=== PATIENT | female | born 1995 | race Caucasian/White ===

== ENCOUNTER 2018-07-17 12:17 | Emergency (ER) | payer MEDICAID, SELFPAY ==
[2018-07-17 12:19] VITALS: BP 121/79; PULSE 122; RESP 18; TEMP 37.1; O2SAT 100; BMI 18.3
--- NOTE | 2018-07-17 12:52 | ED.DCSUM_ITS ---
- ER Visit Summary Date of Service: 07/17/18 Chief Complaint: Nausea and vomiting during History of Present Illness: The patient is a 22 F 8 weeks and 6 days by first trimester ultrasound () presenting with nausea and vomiting for the past 3 days. She has had issues with nausea throughout this but it has been worse for the past 3 days and she is concerned that she is becoming dehydrated. She denies abdominal pain, loss of fluids, vaginal bleeding, or any pelvic cramps. No diarrhea. Physical Examination: Vitals are within normal limits. Mucous membranes are dry appearing. Neck is supple. Heart tones are regular and without murmur. Lungs are clear bilaterally. Abdomen is soft and nontender. No focal or lateralizing neuro findings. Test Results: Urine is positive for ketones but also nitrates and bacteria. I sent it for culture Emergency Department Course and Treatment: And was sent for culture. I gave her a dose of Macrobid here. She has no flank pain or significant pelvic pain to suggest pyelonephritis. She was given IV fluids and Zofran. She feels completely better. She said that Zofran worked quite well for her during her last when she suffered from nausea. She would like Zofran to go home on. At this point, she looks quite well. She looks well-hydrated. She is drinking fluid all difficulty and has no abdominal pain, vaginal bleeding, or loss of fluids. She will follow closely with her [facility] doctor and come back here if worse Treatment Plan: Oral Zofran and Macrobid Disposition: Home stable Impression: Initial encounter nausea and vomiting in first trimester , cystitis This note was generated with [employer] dictation software. It may contain incorrect words, spelling, and punctuation that were not noted in review of the chart prior to signing ED Disposition - Plan for ED Patient: Instructions: ED Nausea Vomiting, ED UTI Cystitis Female Prescriptions: Ondansetron [Zofran Odt] 4 mg PO Q8H PRN PRN #10 tablet PRN Reason: Nausea Nitrofurantoin Macrocrystals [Macrobid] 100 mg PO Q12 #14 capsule Referrals: Care Physician,No Primary [Primary Care Provider] -
[2018-07-17] MEDS: 0.9% Normal Saline 1,000 ML 1000 ML IV (12:54)
[2018-07-17] MEDS: Ondansetron 4 MG/2 ML Vial IV (12:54)
[2018-07-17 13:15] LABS: Mucous, Urine 0 SEEN /hpf (<or=2+); Red Blood Cells-Urine 0 SEEN /hpf (0-5)
[2018-07-17 13:33] LABS: Color, Urine Yellow (Yellow); Glucose, Dipstick Normal (Normal); Leukocyte Esterase-Dipstick 25 /ul (Negative); Nitrite-Dipstick Positive (Negative); Occult Blood-Urine Negative /ul (Negative); Protein-Dipstick 30 mg/dl (Negative); Urine Bilirubin Dipstick Negative (Negative); Urine Clarity Sl. Cloudy (Clear); Urine Urobilinogen 1 mg/dl (Normal); Urine pH 6.5 (5.0 - 8.0)
[2018-07-17 13:37] LABS: Ketone-Dipstick 150 mg/dl (Negative)
[2018-07-17 13:41] LABS: Bacteria 1+ /hpf (None Seen); Squamous Epithelial Cells - UA 5-10 SEEN /hpf (5-10); White Blood Cells 0-5 SEEN /hpf (0-5)
--- NOTE | 2018-07-17 13:41 | NURSING ---
[facility] CALLED WITH [facility], [facility] [address], DR. ELLISON AND PARIS CHA RN, INFORMED OF SAME.
[2018-07-17 13:49] VITALS: BP 105/63; PULSE 57; RESP 15; O2SAT 100
[2018-07-17] MEDS: Nitrofurantoin Macrocrystals 100 MG Capsule PO (14:23)
== END 2018-07-17 14:27 | disposition home or self-care (01) ==
PROVIDERS: Emergency Provider Emergency Medicine
DX: O23.41 Unspecified infection of urinary tract in pregnancy, first trimester (principal); O26.891 Other specified pregnancy related conditions, first trimester; R11.2 Nausea with vomiting, unspecified; Z3A.08 8 weeks gestation of pregnancy
CPT/HCPCS: 81001; 87086; 87088; 96361; 96374; 99284; J7030; J2405

== ENCOUNTER 2019-01-29 07:43 | Outpatient (CLI) | payer MEDICAID, SELFPAY ==
[2019-01-29 08:00] VITALS: BMI 22.1
--- NOTE | 2019-01-30 12:11 | OB.TRI.NOTE ---
History of Present Illness Date of Service: 01/29/19 Reason For Visit: R/O LABOR Date of Service: 01/29/19 Final MUNA: 02/20/19 Gestational age: 36 6/7 Allergies codeine Allergy (Verified 07/17/18 12:17) Abd cramps/diarrhea hydrocodone bitartrate [From Vicodin] Allergy (Verified 07/17/18 12:17) Chest tightness tramadol HCl [From Ultram] Allergy (Verified 01/29/19 09:21) Other I get higher than a kite NST - FHR Rate Baby A Baseline: 130 Variability:: Moderate Accelerations:: 15 x 15 Decelerations:: None NST Reactive:: Yes FHR Category:: Category I Uterine Activity:: irreg ctxs q 3-5 min Impression/Plan high risk multigravida, 3 6/7 weeks, previous c/s, threatened labor
== END 2019-01-29 09:35 | disposition home or self-care (01) ==
LOC: WPOUT 07:46 → OBT 07:47
PROVIDERS: Referring Provider Obstetrics & Gynecology; Visit Provider Obstetrics & Gynecology
DX: O60.03 Preterm labor without delivery, third trimester (principal); O09.93 Supervision of high risk pregnancy, unspecified, third trimester; Z3A.36 36 weeks gestation of pregnancy; Z98.891 History of uterine scar from previous surgery
CPT/HCPCS: 59025; 59050; 99218; G0378

== ENCOUNTER 2019-02-13 04:50 | Inpatient (IN) | payer MEDICAID, SELFPAY ==
--- NOTE | 2019-02-07 12:11 | PCM.HP.BLA ---
History and Physical Date of Admission: 02/13/19 Pre-Op History and Physical ? HPI: The patient is a 23 year old female presenting for pre-operative visit. She is scheduled for?c-s, for?repeat on?02/13/19. ??Procedure discussed along with risks, benefits and complications. ?Other alternatives discussed for management. Consent form signed??Yes.? PAST?MEDICAL?HISTORY PAST MEDICAL HISTORY Diagnosis Date ? Anemia ? ? Anxiety ? ? Depression ? ? fracture age 11 ? right arm fracture ulna and radius ? Hypertension ? ? POTS ? Papanicolaou smear of cervix with low grade squamous intraepithelial lesion (LGSIL) 07/15/2018 ? ? PAST?SURGICAL?HISTORY PAST SURGICAL HISTORY Procedure Laterality Date ? DELIVERY ONLY ? 05/11/15 ? , low transverse ? TONSILLECTOMY HX ? 2010 ? ? CURRENT?MEDICATIONS Current Outpatient Medications Medication Sig Dispense Refill ? ferrous sulfate (IRON) 325 mg (65 mg iron) tablet Take 1 tablet by mouth twice daily. 30 tablet 3 ? midodrine (PROAMITINE) 5 mg tablet Take 2 tablets by mouth three times daily. 180 tablet 11 ? ondansetron orally disintegrating (ZOFRAN ODT) 4 mg tab(s) ER Go-Pack Take 1 tablet by mouth every 6 hours as needed. 30 tablet 3 ? Fzxuhzhg-Rx-Crx-Fe-FA ( VITAMIN) tab Take 1 tablet by mouth. ? ? ? No current facility-administered medications for this visit.? ? ALLERGIES:?Codeine; Hydrocodone; Ultram [Tramadol] ? PERSONAL HISTORY:? SOCIAL?HISTORY Social History ??Socioeconomic History ?Marital status: Single ?Spouse name: Not on file ?Number of children: 1 ?Years of education: 12 ?Highest education level: Not on file ??Occupational History ?Occupation: homemaker ??Social Needs ?Financial resource strain: Not on file ?Food insecurity: ?Worry: Not on file ?Inability: Not on file ?Transportation needs: ?Medical: Not on file ?Non-medical: Not on file ??Tobacco Use ?Smoking status: Current Every Day Smoker ?Years: 2.00 ?Smokeless tobacco: Never Used ?Tobacco comment: 3-5 cigarettes a day ??Substance and Sexual Activity ?Alcohol use: No ?Drug use: No ?Comment: quit weed 1 year ago ?Sexual activity: Yes ?Partners: Male ? control/protection: Pill ??Lifestyle ?Physical activity: ?Days per week: Not on file ?Minutes per session: Not on file ?Stress: Not on file ??Relationships ?Social connections: ?Talks on phone: Not on file ?Gets together: Not on file ?Attends episcopal service: Not on file ?Active member of club or organization: Not on file ?Attends meetings of clubs or organizations: Not on file ?Relationship status: Not on file ?Intimate partner violence: ?Fear of current or ex partner: Not on file ?Emotionally abused: Not on file ?Physically abused: Not on file ?Forced sexual activity: Not on file ??Other Topics ?Concerns: ?Not on file ??Social History Narrative ?Not on file ? FAMILY HISTORY:? FAMILY?HISTORY FAMILY HISTORY Problem Relation Age of Onset ? Thyroid Mother ? ? No Known Problems Father ? ? ADD/ADHD Sister ? ? Asthma Brother ? ? No Known Problems Brother ? ? Diabetes Maternal Grandmother ? ? No Known Problems Maternal Grandfather ? ? Diabetes Paternal Grandmother ? ? Diabetes Paternal Grandfather ? ? No Known Problems Daughter ? ? REVIEW OF SYMPTOMS: GENERAL: denies fevers or chills ENDOCRINOLOGY: has not been on steroids Cardiology : denies palpitations or chest pain, occas palpitations, h/o tachycardia Respiratory: denies?cough, some SOB w/ exertion Hematology: denies history of prolonged bleeding or easy bruising or VTE Allergy: Denies history of personal or family history of allergy to anesthesia ? PHYSICAL EXAMINATION: ? VITALS:?Blood pressure 106/72, weight 122 lb (55.3 kg), last menstrual period 03/22/2018. ? GENERAL:??The patient is well nourished, well hydrated in no acute distress. ?, The patient is oriented to time, place, and person. NECK:?Supple. No lynphadenopathy, normal thyroid, no thyromegaly. LUNGS:?Clear to auscultation bilaterally. no wheezes, rhonchi or rales HEART:?Regular rate and rhythm, Normal heart sounds and No murmurs or gallops GENITALIA:?Normal external genitalia, Urethral meatus normal, Bladder nontender, normal vagina and normal vaginal tone, normal cervix, normal uterus, size and consistency, normal adnexa without masses or tenderness and perineum WNL abd-?soft nontender gravid? ? IMPRESSION:?23-year-old 2 para 1 at 39 weeks on scheduled date of 02/13/2019 for repeat ? PLAN:???The risks/benefits/alternatives and personal involved for the planned?repeat c/s?were reviewed with the patient. Her questions were answered to her satisfaction and she desires to proceed. ?Consent was signed. ?I reviewed with her postop instructions and expectations. ? ? I have reviewed and updated past medical and surgical history, medications and allergies? Janie Doan M.D.
[2019-02-13] VITALS (17 sets, daily range): BP systolic 102–119; BP diastolic 64–88; PULSE 50–71; RESP 10–18; TEMP 35.9–36.6; O2SAT 96–100; BMI 22.4
[2019-02-13] MEDS: Lactated Ringers 1,000 ML 999 ML IV (05:25)
[2019-02-13 05:53] LABS: Absolute Lymphocyte Count 3.01 X10^3/uL (0.83-4.51); Absolute Neutrophil Count 6.6 X10^3/uL (2.0-7.7); Basophil# 0.03 X10^3/uL; Basophil% 0.3 % (0-1); Eosinophil# 0.14 X10^3/uL; Eosinophils% 1.3 % (0-5); Hematocrit 35.3 % (37-47); Hemoglobin 11.6 g/dL (12.0-15.0); Lymphocyte # 3.01 X10^3/ul (4.0); Lymphocyte % 28.3 % (19-41); Mean Corp Hgb Conc 32.9 g/dL (32-36); Mean Corpuscular Hgb 29.3 pg (27.0-32.0); Mean Corpuscular Volume 89.1 fL (81-99); Mean Platelet Vol. 11.6 fl (6.2-12.0); Monocyte# 0.82 X10^3/uL; Monocyte% 7.7 % (0-10); NRBC Flagged by Analyzer 0 % (0-5); Neutrophil # 6.59 X10^3/uL (2.7-7.7); Neutrophil % 61.9 % (47-70); Platelet Count 243 K/mm3 (150-450); RBC Distribution Width CV 13.5 % (11.6-14.6); RBC Distribution Width SD 43.9 fl (35.1-43.9); Red Blood Count 3.96 M/mm3 (4.2-5.4); White Blood Count 10.6 K/mm3 (4.4-11.0)
[2019-02-13] MEDS: Lactated Ringers 1,000 ML 50 ML IV (06:35)
[2019-02-13] MEDS: Sodium Citrate/Citric Acid 30 ML UDC PO (12:45)
[2019-02-13] MEDS: Cefazolin 2 GM in 0.9% Normal Saline 100 ML IV (12:53)
--- NOTE | 2019-02-13 13:31 | PCM.OPRPT ---
Delivery Classification: Scheduled Final MUNA: 02/20/19 Final MUNA Source: US <20 weeks Gestational age: 39 Weeks and 0 Days farm facility manager: Neftaly Obregon ms3 Type of Anesthesia:: Spinal Special Medications: none Implants Used: none Date of Procedure: 02/13/19 Pre-Operative Diagnosis: 39 week, previous c/s Post-Operative Diagnosis: same Indications for : Repeat Elective Description of Procedure: The patient was taken to the operating room. She was prepped and draped in the dorsal supine position with a leftward tilt. A Pfannenstiel skin incision was made approximately 2 cm above the symphysis pubis and carried through to underlying layer fascia with the scalpel. The fascia was incised incised in the midline and extended laterally with the Loza scissors. The fascia was dissected off the rectus muscles with blunt and sharp dissection. The rectus muscles were in the midline and the peritoneum was entered bluntly. The peritoneal incision was stretched and the bladder blade was placed. The uterine incision was made in a low transverse fashion with the scalpel and extended superiorly and inferiorly with blunt dissection. The amniotic membranes were ruptured bluntly and clear amniotic fluid returned. The infant's head was brought to the incision in the flexed position and delivered without difficulty. The remainder of the infant was delivered with gentle traction and fundal pressure in the standard fashion. The mouth and nares were bulb suctioned. The cord was clamped and cut as the was stimulated. Cord clamping was delayed. The infant was handed off to the waiting nursing staff. The placenta was delivered with fundal massage and gentle traction in the standard fashion. The uterus was exteriorized and cleared of all clots and debris. The cervix was dilated with a ring forcep. The uterine incision was closed with #1 Vicryl in a running locked fashion. The incision was examined and was found to be hemostatic. The uterus was placed back into the peritoneal cavity and hemostasis was again confirmed. The rectus muscles were examined and any bleeding was Bovie cauterized. The parietal peritoneum and rectus muscles were closed en bloc with an 1 Vicryl running suture. The surgical teams outer gloves were then changed. The rectus fascia was examined and any bleeding was Bovie cauterized and the rectus fascia was closed with 1 Vicryl suture in a running standard fashion. The subcutaneous tissue was examining and any bleeding was Bovie cauterized. The subcutaneous tissue was reapproximated with 3-0 Vicryl suture. The skin was closed in a subcuticular fashion by the GLASS LINED TANK REPAIRER with me present in the labor and delivery suite. I performed the remainder of the procedure with assistance. All sponge, lap, and needle counts were correct. The patient was taken to her room for recovery in a stable condition. Amniotic Membrane Rupture Type: Artificial Amniotic Fluid Description: Clear Placenta Disposition: [facility] Specimen(s) sent to pathology: none Drain: Solis to straight drain Fluids Replaced: 1000 cc Cord Entanglement: None Cord Vessel Description: 3 Vessels Esitmated Blood Loss (ml): 800 Infant Gender: Male (1 minute): 8 - Titus 6lb 10 oz (5 minute): 9 Delayed cord clamping: Yes Antibiotic Given: Ancef 2 grams IV x1 Complications: None - Admit VTE Documentation VTE Present on Admission: No VTE Mechan Device Prophylaxis: SCD's VTE Pharm Prophylaxis ordered?: No Reason prophylaxis not ordered:: Procedure Not Indicated
[2019-02-13] MEDS: Oxytocin 30 units/NS 500 ml 30 UNITS/500 ML IV.SOLN 167 UNITS IV (14:10)
[2019-02-13] MEDS: Lactated Ringers 1,000 ML 100 ML IV (17:12)
[2019-02-13] MEDS: Ketorolac 30 MG/ML Syringe IV (19:36)
--- NOTE | 2019-02-13 21:20 | NURSING ---
Pt up to chair, tolerated well.
[2019-02-13] MEDS: Docusate Sodium 100 MG Capsule PO (23:13)
[2019-02-14] VITALS (11 sets, daily range): BP systolic 88–126; BP diastolic 54–87; PULSE 54–87; RESP 16–18; TEMP 36.2–36.8; O2SAT 98–100
[2019-02-14] MEDS: Ketorolac 30 MG/ML Syringe IV ×4 (01:17→19:01)
[2019-02-14] MEDS: Lactated Ringers 1,000 ML 100 ML IV (01:20)
[2019-02-14 05:14] LABS: Hematocrit 28.6 % (37-47); Hemoglobin 9.3 g/dL (12.0-15.0); Mean Corp Hgb Conc 32.5 g/dL (32-36); Mean Corpuscular Hgb 29.2 pg (27.0-32.0); Mean Corpuscular Volume 89.9 fL (81-99); Mean Platelet Vol. 11.9 fl (6.2-12.0); Platelet Count 169 K/mm3 (150-450); RBC Distribution Width CV 14.1 % (11.6-14.6); Red Blood Count 3.18 M/mm3 (4.2-5.4); White Blood Count 12.9 K/mm3 (4.4-11.0)
[2019-02-14] MEDS: 0.9% Saline Lock 10 ML Syringe IV ×3 (07:33→19:01)
[2019-02-14] MEDS: Senna/Docusate Sodium 1 Tablet PO ×2 (07:34→22:52)
--- NOTE | 2019-02-14 12:32 | PCM.PN.OB ---
Subjective: pain well controlled. Average lochia. No nausea or vomiting. - Physical Exam General: Alert, Cooperative, No apparent distress Abdomen: Soft, Distended - Mildly, softly, Tender - Appropriately, - - This is firm, below the umbilicus and appropriately tender Extremities: No edema Skin: Incision - Bandage is clean dry and intact Vital Signs Temp Pulse Resp BP Pulse Ox 97.2 F L 58 L 16 117/87 H 100 02/14/19 08:00 02/14/19 08:00 02/14/19 08:00 02/14/19 08:00 02/14/19 08:00 Oxygen Delivery Method Room Air Weight: 55.701 kg Body Mass Index (BMI) 22.4 Intake and Output for Last 24 Hours 02/12/19 02/13/19 02/14/19 23:59 23:59 23:59 Intake Total 4054.17 / 4054.17 1696.66 / 1696.66 Output Total 1350 / 1350 1900 / 1900 Balance 2704.17 / 2704.17 -203.34 / -203.34 Laboratory Tests Past 24 Hrs 02/14/19 04:25 WBC 12.9 H RBC 3.18 L Hgb 9.3 L Hct 28.6 L MCV 89.9 MCH 29.2 MCHC 32.5 RDW Std Deviation 46.0 H RDW Coeff of Cruz 14.1 Plt Count 169 MPV 11.9 Medical Necessity - Tobacco Use Smoking Status: Former smoker Assessment/Plan Postoperative day #1 status post repeat section. Patient is doing well. Routine care. Patient is concerned with pain medications has had adverse reactions in the past. I discussed with her she can avoid narcotics, and just alternate Tylenol and anti-inflammatories and use heat or ice as needed. However, after discussion she would like to try oxycodone as needed for breakthrough pain. Will attempt 5 mg, could attempt 2.5 mg if needed as well. is bottlefeeding and doing well.
[2019-02-14] MEDS: oxyCODONE 5 MG Tablet PO ×2 (14:05→19:49)
[2019-02-15] MEDS: Ketorolac 30 MG/ML Syringe IV ×2 (00:47→07:45)
[2019-02-15] MEDS: 0.9% Saline Lock 10 ML Syringe IV ×2 (00:47→07:45)
[2019-02-15] MEDS: oxyCODONE 5 MG Tablet PO ×2 (00:47→10:28)
[2019-02-15 02:50] VITALS: BP 107/63; PULSE 50; RESP 17; TEMP 36.6; O2SAT 98
--- NOTE | 2019-02-15 10:46 | DCINST_ITS ---
Discharge Diet: No Restrictions Discharge Activity: May not drive while taking narcotic pain medications., May Shower May resume sexual activity in: 4-6 weeks Weight Bearing Status: Weight bearing as tolerated Call your doctor if your incision/area has: Continuous Slow Oozing, Sudden Increased Bleeding, Increased Pain/ Swelling, Increased Redness, Foul Smelling Discharge, Swelling at the incision site Additional Instructions: If you experience any of the following, contact your healthcare provider. * Bleeding that soaks a pad every hour for 2 hours * Fever 100.4 or higher * Unrelieved incision or abdominal pain * Swelling, redness, discharge or bleeding from your incision or episiotomy site * Your incision begins to separate * Problems urinating (including inability to urinate or burning while urinating). * Visual changes * Severe headache * Flu-like symptoms * Pain or redness in one of both of your breasts * Pain, warmth, tenderness or swelling in your legs, especially the calf area * Frequent nausea and vomiting * Symptoms of depression or anxiety If you experience any of the following, call 911 or go to the nearest Emergency Room. * Chest pain * Problems breathing * Seizure activity * Partial or complete paralysis of a body part, slurred speech, weakness or drooping of the face, or a sudden inability to walk or hold your balance Allergies/Adverse Reactions: Allergies codeine Allergy (Verified 02/13/19 05:37) Abd cramps/diarrhea hydrocodone bitartrate [From Vicodin] Allergy (Verified 02/13/19 05:37) Chest tightness tramadol HCl [From Ultram] Allergy (Verified 02/13/19 05:37) Other I get higher than a kite Medications to take at Discharge Midodrine HCl 1 tab PO TID 04/27/15 Prenatabs FA 1 tab PO DAILY 01/29/19 Ferrous Sulfate [Iron] 325 mg PO DAILY 02/13/19 Oxycodone [Oxyir] 5 mg PO Q6H PRN PRN 5 Days #15 tab 02/15/19 The following prescriptions were given: Oxycodone [Oxyir] 5 mg PO Q6H PRN PRN 5 Days #15 tab PRN Reason: Mod-Severe Pain (-03/20) Prescription Printed Follow-Up: Call to make an appointment with your doctor for an incision check in 1-2 weeks. You will also need a 6 week post- follow up appointment. Test results from this visit will be discussed in further detail at your follow- up appointment, if applicable. Primary Care Physician: Care Physician,No Primary [Primary Care Provider] -
--- NOTE | 2019-02-15 10:48 | PCM.PN.OB ---
Subjective: Denies complaints - Physical Exam General: Alert, Oriented x3 Abdomen: Soft, Non Tender, Non-Distended - ff mid & below umb; inc - bandage c/d/i Extremities: No Calf Tenderness Vital Signs Temp Pulse Resp BP Pulse Ox 97.8 F 50 L 17 107/63 98 02/15/19 02:50 02/15/19 02:50 02/15/19 02:50 02/15/19 02:50 02/15/19 02:50 Oxygen Delivery Method Room Air Weight: 122 lb 12.8 oz Body Mass Index (BMI) 22.4 Intake and Output for Last 24 Hours 02/13/19 02/14/19 02/15/19 23:59 23:59 23:59 Intake Total 4054.17 / 4054.17 1696.66 / 1696.66 Output Total 1350 / 1350 2300 / 2300 Balance 2704.17 / 2704.17 -603.34 / -603.34 Medical Necessity - Tobacco Use Smoking Status: Former smoker Assessment/Plan POD#2 D/c home per patient request Heme - continue iron, cbc reviewed
--- NOTE | 2019-02-15 14:00 | NURSING ---
1220 Pt eager to be discharged to home. States she feels comfortable and able to care for herself and infant. Significant other involved and helpful.
== END 2019-02-15 12:20 | disposition home or self-care (01) | DRG 540 ==
PROVIDERS: Admitting Provider Obstetrics & Gynecology; Referring Provider Obstetrics & Gynecology; Visit Provider Obstetrics & Gynecology
PROC: 10D00Z1 Extraction of Products of Conception, Low, Open Approach (ICD-10-PCS; CPT 59514; principal; 2019-02-13 12:15)
DX: O34.211 Maternal care for low transverse scar from previous cesarean delivery (principal); N85.8 Other specified noninflammatory disorders of uterus; Z3A.39 39 weeks gestation of pregnancy; Z37.0 Single live birth; F17.210 Nicotine dependence, cigarettes, uncomplicated; O99.334 Smoking (tobacco) complicating childbirth; O99.02 Anemia complicating childbirth; D64.9 Anemia, unspecified
CPT/HCPCS: 85025; 85027; 86850; 86900; 86901; 99218; J7120; A4216; G0378; J2405

== ENCOUNTER 2021-03-10 09:59 | Inpatient (IN) | payer MEDICAID, SELFPAY ==
[2019-02-13 05:42] VITALS: BMI 22.4
--- NOTE | 2021-03-07 13:27 | PCM.HP.BLA ---
History and Physical Date of Admission: 03/10/21 Pre-Op History and Physical ? HPI: The patient is a 25 year old female presenting for pre-operative visit. She is scheduled for , for repeat elective cs on 03/10/21. Procedure discussed along with risks, benefits and complications. Other alternatives discussed for management. Consent form signed? Yes. ? ? PAST MEDICAL HISTORY PAST MEDICAL HISTORY Diagnosis Date ? Anemia ? ? Anxiety ? ? Depression ? ? fracture age 11 ? right arm fracture ulna and radius ? Hypertension ? ? POTS ? Papanicolaou smear of cervix with low grade squamous intraepithelial lesion (LGSIL) 07/15/2018 ? ? PAST SURGICAL HISTORY PAST SURGICAL HISTORY Procedure Laterality Date ? ANESTH, SECTION ? ? ? DELIVERY ONLY ? 05/11/15, 02/13/2019 ? , low transverse ? TONSILLECTOMY HX ? 2010 ? ? ? CURRENT MEDICATIONS Current Outpatient Medications Medication Sig Dispense Refill ? midodrine (PROAMITINE) 5 mg tablet Take 2 tablets by mouth three times daily. 180 tablet 11 ? sertraline (ZOLOFT) 50 mg tablet Take 1.5 tablets by mouth once daily. 45 tablet 4 ? ondansetron orally disintegrating (ZOFRAN ODT) 4 mg disintegrating tablet Take 1 tablet by mouth every 8 hours as needed. DISSOLVE ON TONGUE 30 tablet 1 ? No current facility-administered medications for this visit. ? ? ALLERGIES: Codeine, Hydrocodone, and Ultram [Tramadol] ? PERSONAL HISTORY: SOCIAL HISTORY Social History ? Tobacco Use ? Smoking status: Former Smoker ? ? Years: 2.00 ? Smokeless tobacco: Never Used ? Tobacco comment: 2 a day Vaping Use ? Vaping Use: Never used Substance Use Topics ? Alcohol use: No ? Drug use: No ? ? Comment: quit weed 1 year ago ? FAMILY HISTORY: FAMILY HISTORY FAMILY HISTORY Problem Relation Age of Onset ? Thyroid Mother ? ? No Known Problems Father ? ? ADD/ADHD Sister ? ? Asthma Brother ? ? No Known Problems Brother ? ? Diabetes Maternal Grandmother ? ? No Known Problems Maternal Grandfather ? ? Diabetes Paternal Grandmother ? ? Diabetes Paternal Grandfather ? ? No Known Problems Daughter ? ? ? REVIEW OF SYMPTOMS: negative except as noted above PHYSICAL EXAMINATION: ? VITALS: Blood pressure 110/62, weight 137 lb (62.1 kg), last menstrual period 06/14/2020. ? GENERAL: The patient is well nourished, well hydrated in no acute distress. , The patient is oriented to time, place, and person. NECK: full range of motion ABD: gravid, non tender ? IMPRESSION: @ 38.2 weeks- EDC 03/16/21 ? PLAN: REpeat elective cs scheduled ? Pt has been counseled on risks/benefits and alternatives of surgery including but not limited to anesthesia, bleeding, infection, injury to pelvic structures including bowel, bladder, ureters and vessels. Pt wishes to proceed with surgery at this time. COVID TESTING REVIEWED ? I have reviewed and updated past medical and surgical history, medications and allergies Grace Moser MD
[2021-03-10] VITALS (17 sets, daily range): BP systolic 100–129; BP diastolic 64–87; PULSE 50–71; RESP 13–18; TEMP 36.1–37; O2SAT 97–100; BMI 25.2
[2021-03-10] MEDS: Lactated Ringers 1,000 ML 999 ML IV (10:25)
[2021-03-10] MEDS: Acetaminophen 500 MG Tablet 1000 MG PO ×2 (10:39→18:11)
[2021-03-10 10:49] LABS: Absolute Lymphocyte Count 1.66 X10^3/uL (0.83-4.51); Absolute Neutrophil Count 7.9 X10^3/uL (2.0-7.7); Basophil# 0.04 X10^3/uL; Basophil% 0.4 % (0-1); Eosinophils% 0.9 % (0-5); Hematocrit 35.2 % (37-47); Hemoglobin 11.4 g/dL (12.0-15.0); Lymphocyte # 1.66 X10^3/ul (0.83-4.51); Lymphocyte % 15.6 % (19-41); Mean Corp Hgb Conc 32.4 g/dL (32-36); Mean Corpuscular Hgb 28.9 pg (27.0-32.0); Mean Corpuscular Volume 89.1 fL (81-99); Mean Platelet Vol. 11.2 fl (6.2-12.0); Monocyte% 8.5 % (0-10); NRBC Flagged by Analyzer 0 % (0-5); Neutrophil # 7.89 X10^3/uL (2.7-7.7); Neutrophil % 74.1 % (47-70); Platelet Count 245 K/mm3 (150-450); RBC Distribution Width CV 13.8 % (11.6-14.6); RBC Distribution Width SD 44.8 fl (35.1-43.9); Red Blood Count 3.95 M/mm3 (4.2-5.4); White Blood Count 10.6 K/mm3 (4.4-11.0)
[2021-03-10] MEDS: Lactated Ringers 1,000 ML 150 ML IV (11:25)
[2021-03-10] MEDS: Sodium Citrate/Citric Acid 30 ML UDC PO (11:54)
[2021-03-10 12:00] LABS: Amphetamine Urine VISTA NEGATIVE (<1000 ng/mL); Barbiturate Urine VISTA NEGATIVE (< 200 ng/mL); Benzodiazepine Urine VISTA NEGATIVE (< 200 ng/mL); Cocaine Urine VISTA NEGATIVE (< 300 ng/mL); Ecstacy Urine VISTA NEGATIVE (< 500 ng/mL); Methadone Urine VISTA NEGATIVE (< 300 ng/mL); PCP Urine VISTA NEGATIVE (< 25 ng/mL); THC Urine VISTA POSITIVE (< 50 ng/mL); Vista UDS pH Range 6
[2021-03-10] MEDS: Cefazolin 2 GM in 0.9% Normal Saline 100 ML IV (12:13)
--- NOTE | 2021-03-10 12:56 | OP.PCM_ITS ---
Assessment & Plan (1) Delivery by section: Details Operative Information Date of Procedure: 03/10/21 Pre-Operative Diagnosis: term gestation, previous cs Post-Operative Diagnosis: same, live male infant Indications for : Repeat Elective Classification: Scheduled Procedure Type: low transverse turpentine distiller #1: Maty Cespedes Type of Anesthesia: Spinal Antibiotic Given: Ancef 2 grams IV x1 Drain: Solis to straight drain Estimated Blood Loss: 600 Fluids Replaced: 1000 Procedure Start Time: 12:19 Procedure Stop Time: 12:55 Time of Delivery: : Findings Description of Procedure: After informed consent was obtained the patient was taken the operating room she was given spinal anesthesia. She was then placed in the supine position. She was prepped and draped in the normal sterile fashion. Anesthesia was found to be adequate. At this time a Pfannenstiel skin incision was made with a knife was carried down to the underlying layer of the fascia. The fascial incision was then extended laterally using curved Loza scissor- very thin fascia. no rectus muscle identfied in midline- peritneum entered through defect, taken down with metzenbaum. Gentle opposing traction was placed. At this time the vesicouterine peritoneum was identified- very thin lower uterine segment- bladder reflection disected off. Scalpel was used to make a uterine incision in a low transverse fashion. The uterus was then entered bluntly gentle opposing traction was placed to extend this incision. Membranes were ruptured clear. 's head was brought to the uterine incision was delivered atraumatically. Cord was clamped and cut infant was handed to the waiting nursery team. The Placenta was removed from the uterus. The uterus was then removed from the abdominal cavity. The uterus was cleared of all clots and debris using a lap. At this time the uterine incision was reapproximated using #1 Vicryl in a running locked fashion followed by a second imbricating layer. Hemostasis was appreciated. Posterior cul-de-sac was then cleared of all clots and debris. Uterus was placed back in the abdominal cavity. Gutters were cleared of all clots and debris. tubes and ovaries normal. Uterine incision was reevaluated and noted to be of excellent hemostasis. At this time the peritoneum was grasped with Kellys reapproximated using #2 Vicryl suture in a running fashion. Fascia was then reapproximated using #1 Vicryl in a running fashion. Subcu layer was reapproximated with #2 0 plain gut suture in an interrupted fashion. Subcu layer was closed using 4-0 Monocryl in a subcu fashion. Dry sterile dressing was applied. Instrument lap needle count correct ?2. Anticipated normal postoperative course. Presentation: Positive for Vertex Amniotic Membrane Rupture Type: Artificial Amniotic Fluid Description: Clear Placental Delivery Description: Expressed Placenta Disposition: [facility] Cord Vessel Description: 3 Vessels Cord Entanglement: None Infant A Gender: Male (1 minute): 8 (5 minute): 8 Delayed Cord Clamping: Yes Complications Risks of Surgery Discussed w/Patient: Bleeding, Anesthesia Risks, Infection, Need for Future C-Sections and Injury to surrounding structure(s) including bowel and bladder Complications: none Admit VTE Documentation VTE Present on Admission: Yes VTE Mechan Device Prophylaxis: SCD's VTE Pharm Prophylaxis Ordered: No
[2021-03-10] MEDS: Oxytocin 30 units/NS 500 ml 30 UNITS/500 ML IV.SOLN 167 UNITS IV (13:10)
[2021-03-10] MEDS: Ketorolac 30 MG/ML Syringe IV ×2 (13:32→19:24)
[2021-03-10] MEDS: Midodrine HCl 5 MG Tablet 10 MG PO (18:23)
[2021-03-11] VITALS: BP 125/77; PULSE 50; RESP 16; TEMP 36.6
[2021-03-11] MEDS: Acetaminophen 500 MG Tablet 1000 MG PO ×3 (00:10→13:04)
[2021-03-11] MEDS: Ketorolac 30 MG/ML Syringe IV ×2 (01:19→07:51)
[2021-03-11 04:17] VITALS: BP 124/79; PULSE 50; RESP 16; TEMP 36.6
[2021-03-11 04:35] LABS: Hematocrit 32.2 % (37-47); Hemoglobin 10.4 g/dL (12.0-15.0); Mean Corp Hgb Conc 32.3 g/dL (32-36); Mean Corpuscular Hgb 29.5 pg (27.0-32.0); Mean Corpuscular Volume 91.2 fL (81-99); Mean Platelet Vol. 11.6 fl (6.2-12.0); Platelet Count 225 K/mm3 (150-450); RBC Distribution Width CV 13.8 % (11.6-14.6); RBC Distribution Width SD 46.1 fl (35.1-43.9); Red Blood Count 3.53 M/mm3 (4.2-5.4); White Blood Count 16.5 K/mm3 (4.4-11.0)
[2021-03-11] MEDS: Sertraline 50 MG Tablet 75 MG PO (07:49)
[2021-03-11] MEDS: Senna/Docusate Sodium 1 Tablet PO (07:49)
[2021-03-11] MEDS: Midodrine HCl 5 MG Tablet 10 MG PO ×2 (07:49→13:05)
[2021-03-11] MEDS: 0.9% Saline Lock 10 ML Syringe IV (07:51)
[2021-03-11 08:00] VITALS: BP 103/73; PULSE 54; RESP 14; TEMP 36.7; O2SAT 99
--- NOTE | 2021-03-11 08:52 | PCM.DC ---
Discharge Instructions Diet Discharge Diet: No restrictions Activity Discharge Activity: May Not Drive (until you feel strong enough to slam on a car brake or turn a steering wheel sharply) and May Shower May resume sexual activity in: 6 weeks Ice area for (Minutes): 15 Weight Bearing Status: Weight bearing as tolerated Lifting Restrictions: nothing heavier than baby Dressing / Incision Call your doctor if your incision/area has: Continuous Slow Oozing, Sudden Increased Bleeding, Increased Pain/ Swelling, Increased Redness, Foul Smelling Discharge and Swelling at the incision site Call your doctor if you observe: Fever of 101 or Higher, Numbness or Tingling, Inability to urinate, Inability to have a bowel movement, Using more than 1 pad per hour, Shortness of breath, Dizziness, Fainting spells, Swelling in the ankles, Chest pain, Increased palpitations (irregular heartbeat), Calf discomfort and Uncontrolled pain Suture Line Care: Avoid Pulling/Pushing and Avoid Pinching/Bending Remove Dressing in: 3 days Cleanse incision/area with: Soap & Water Follow Up Care Please Follow Up With: Grace Enrique MD When: 1-2 weeks for incision check and 6 weeks for visit Test Results: Test results from this visit will be discussed in further detail at your follow-up appointment, if applicable. Discharge Plan Admission Admit Date/Time: 03/10/21 09:59 Primary Reason for Your Visit: section Attending Provider: Grace Enrique Primary Care Provider: Jose Physician,No Primary Discharge Orders/Prescriptions Prescriptions: New ibuprofen 800 mg tablet 800 mg PO Q8H PRN (Reason: pain) Qty: 20 RF: 0 docusate sodium [Colace] 100 mg capsule 100 mg PO BID Qty: 30 RF: 0 Continued midodrine 10 MG tablet 1 tab PO TID RF: 0 ferrous sulfate 325 MG tablet 325 mg PO DAILY RF: 0 Prenatabs FA 1 tab PO DAILY RF: 0 sertraline [Zoloft] 50 mg Tablet 75 mg PO DAILY RF: 0 Referrals / Follow Up: Care Physician,No Primary [Primary Care Provider] - Disposition Disposition (needs filled in before D/C Order can be placed): Home, Self Care
--- NOTE | 2021-03-11 08:53 | PN.OBGYN_ITS ---
Subjective Subjective Patient is doing well. Pain is well controlled. Ambulating voiding without difficulty. Tolerating regular diet without nausea or vomiting. Lochia is normal. Denies chest pain, shortness of breath, leg pain. Desires discharge today. Objective Data Objective Data Vital Signs: Vital Signs Temp Pulse Resp BP Pulse Ox 98.1 F 54 L 14 103/73 99 03/11/21 08:00 03/11/21 08:00 03/11/21 08:00 03/11/21 08:00 03/11/21 08:00 Oxygen Delivery Method Room Air Weight: 133 lb 8 oz Body Mass Index (BMI) 25.2 Intake & Output: Intake and Output for Last 24 Hours 03/09/21 03/10/21 03/11/21 23:59 23:59 23:59 Intake Total 2610 / 2610 Output Total 350 / 350 Balance 2260 / 2260 Lab / Micro Data Result Diagrams: 03/11/21 04:25 Labs: Laboratory Results - last 24 hr 03/10/21 10:25: WBC 10.6, RBC 3.95 L, Hgb 11.4 L, Hct 35.2 L, MCV 89.1, MCH 28.9, MCHC 32.4, RDW Std Deviation 44.8 H, RDW Coeff of Curz 13.8, Plt Count 245, MPV 11.2, Immature Gran % (Auto) 0.500, Neut % (Auto) 74.1 H, Lymph % (Auto) 15.6 L, [place] % (Auto) 8.5, Eos % (Auto) 0.9, Baso % (Auto) 0.4, Absolute Neuts (auto) 7.9 H, Absolute Lymphs (auto) 1.66, Nucleated RBC % 0 03/10/21 10:25: Blood Type A POSITIVE, Antibody Screen NEGATIVE 03/10/21 11:20: Urine Opiates Screen NEGATIVE, Urine Methadone Screen NEGATIVE, Ur Barbiturates Screen NEGATIVE, Ur Phencyclidine Scrn NEGATIVE, Ur Amphetamines Screen NEGATIVE, U Methamphetamin-MDMA NEGATIVE, U Benzodiazepines Scrn NEGATIV E, Urine Cocaine Screen NEGATIVE, U Cannabinoids Screen POSITIVE H, Ur Drug S creen Comment 03/11/21 04:25: WBC 16.5 H, RBC 3.53 L, Hgb 10.4 L, Hct 32.2 L, MCV 91.2, MCH 29.5, MCHC 32.3, RDW Std Deviation 46.1 H, RDW Coeff of [place] 13.8, Plt Count 225, MPV 11.6 Physical Exam Const alert and no apparent distress General Appearance: comfortable HEENT normocephalic Resp normal respiratory effort GI soft to palpation, non-tender and non-distended GI Narrative: dressing c/d/i Extremity no calf tenderness Skin no rashes or lesions noted Assessment & Plan (1) Delivery by section: PLAN: Patient desires discharge today. Meeting all milestones go home. Discharge instructions reviewed. To follow-up in the office in 1 to 2 weeks for incision check.
[2021-03-11 12:26] VITALS: BP 128/78; PULSE 55; RESP 14; TEMP 36.6
== END 2021-03-11 14:10 | disposition home or self-care (01) | DRG 540 ==
PROVIDERS: Admitting Provider Obstetrics & Gynecology; Visit Provider Obstetrics & Gynecology
PROC: 10D00Z1 Extraction of Products of Conception, Low, Open Approach (ICD-10-PCS; CPT 59514; principal; 2021-03-10 11:45)
DX: O34.219 Maternal care for unspecified type scar from previous cesarean delivery (principal); O99.02 Anemia complicating childbirth; D64.9 Anemia, unspecified; O99.344 Other mental disorders complicating childbirth; F32.9 Major depressive disorder, single episode, unspecified; F41.9 Anxiety disorder, unspecified; Z79.899 Other long term (current) drug therapy; Z87.891 Personal history of nicotine dependence; Z3A.38 38 weeks gestation of pregnancy; Z37.0 Single live birth
CPT/HCPCS: 80307; 85025; 85027; 86850; 86900; 86901; 99218; 99251; J7120; A4216; G0378; G0463; J2405

== ENCOUNTER 2025-04-02 07:11 | Day surgery (SDC) | payer MEDICAID, SELFPAY ==
[2025-04-02] VITALS (9 sets, daily range): BP systolic 95–107; BP diastolic 44–64; PULSE 51–76; RESP 16–18; TEMP 36.6–37.1; O2SAT 99–100; BMI 19.3
--- OUTSIDE RECORDS SUMMARY | 2025-04-02 07:14 | XMS RPT_ITS | CCD ---
Author Organization [facility] Inform ion Partnership [facility] Care Team Providers Care Laborer [facility] Name Role Phone Karthik Merchant Admitting UnavailKarthik Nunez Attending UnavailElias Elias Primary Care Unavailable Elias Noriega Primary Care Provider [phone] Elias Noriega Primary Care Provider Elias Noriega Primary Care Provider Elias Noriega MD Primary Care Provider [phone] Elias Noriega MD Primary Care Provider [phone] ELISHA JONES Attending Unavailable ELIAS NORIEGA Primary Care Unavailable ELISHA JONES Referring Unavailable ELIAS NORIEGA Primary Care Unavailable ABRAHAM BRITO Attending Unavailable ELISHA JONES Referring Unavailable ELIAS NORIEGA Primary Care Unavailable ABRAHAM BRITO Attending Unavailable ELIAS NORIEGA Primary Care Unavailable ABRAHAM BRITO Attending Unavailable ELIAS NORIEGA Primary Care Unavailable ELIAS NORIEGA Primary Care Unavailable LINDA ALDRIDGE Attending Unavailable ELIAS NORIEGA Primary Care Unavailable NONE, NONE Primary Care Unavailable STEVEN BISHOP MD Consulting Unavailable LUPE GAONA DR~[id number] MICHELINE Torres Attending Unavailable LUPE GAONA DR~[id number] MICHELINE Torres Admitting Unavailable STEVEN BISHOP MD Consulting Unavailable NONE, NONE Consulting Unavailable NONE, NONE Consulting Unavailable BRIELLE ASHLEY APRN Consulting Unavail able BRIELLE ASHLEY APRN Consulting Unavail able LUPE GAONA, DR MICHELINE Torres Consulting Unavaila ble LUPE GAONA, DR MICHELINE Torres Consulting Unavaila ble Care Physician, No Primary Primary Care Unava ilZabrina Whitley Referring Unavailable Zabrina Carter Attending Unavailable Allergies Allergy Classification Reported Allergen(s) Allergy Type Date of Onset Reaction(s) Facility (2 sources) Acetaminophen / HYDROcodone; Translations: [Vicodin] Drug Allergy [facility] Repository (12 sources) Codeine; Translations: [codeine] Drug Allergy 1 Intolerance [facility] Repository (2 sources) traMADol; Translations: [Ultram] Drug Allergy [facility] Repository (9 sources) HYDROcodone; Translations: [HYDROCODONE] Drug Allergy 4 GI Upset [facility] Work Phone: (9 sources) traMADol; Translations: [TRAMADOL] Drug Allergy 1 Mental Status Change [facility] Work Phone: (1 source) HYDROcodone Drug Allergy 5 [facility] Repository (1 source) traMADol Drug Allergy 5 [facility] Repository Medications Current Medications Medication Drug Class(es) Dates Sig (Normalized) Sig (Original) Ethinyl Estradiol / Levonorgestrel (12 sources) Progestin, Estrogen, Progestin-containi ng Intrauterine Device Start: 12-05-2024 take 1 tablet by mouth once daily Levonorgestrel-Ethi nyl Estrad (AVIANE) 0.1mg - 20mcg per tablet Indications: Surveillance for control, oral contraceptives Take 1 tablet by mouth once daily. FOR CONTINUOUS USE. Take active pill continuously x 3 mo (discard placebo pill) 112 tablet 5 12/05/2024 Active Start: 08-16-2023 End: 12-05-2024 take 1 tablet by mouth once daily Levonorgestrel-Ethinyl Estrad (AVIANE) 0.1mg - 20mcg per tablet Take 1 tablet by mouth once daily. Take active pill continuously x 3 mo (discard placebo pill) 84 tablet 4 08/16/2023 12/05/2024 Discontinued Start: 08-16-2023 take 1 tablet by keagan th once daily Levonorgestrel-Ethinyl Estrad (AVIANE) 0.1mg - 20mcg per tablet Take 1 tablet by mouth once daily. Take active pill continuously x 3 mo (discard placebo pill) 84 tablet 4 08/16/2023 Active Start: 05-22-2023 End: 08-16-2023 take 1 tablet by mouth once daily Levonorgestrel-Ethinyl Estrad (AVIANE) 0.1mg - 20mcg per tablet Take 1 tablet by mouth once daily. Take active pill continuously x 3 mo (discard placebo pill) 112 tablet 0 05/22/2023 08/16/2023 Discontinued Start: 05-22-2023 take 1 tablet by keagan th once daily Levonorgestrel-Ethinyl Estrad (AVIANE) 0.1mg - 20mcg per tablet Take 1 tablet by mouth once daily. Take active pill continuously x 3 mo (discard placebo pill) 112 tablet 0 05/22/2023 Active Start: 05-02-2022 End: 05-18-2023 take 1 tablet by mouth once daily Levonorgestrel-Ethinyl Estrad (AVIANE) 0.1mg - 20mcg per tablet Take 1 tablet by mouth once daily. Take active pill continuously x 3 mo (discard placebo pill) 112 tablet 3 05/02/2022 05/18/2023 Discontinued Start: 05-02-2022 take 1 tablet by keagan th once daily Levonorgestrel-Ethinyl Estrad (AVIANE) 0.1mg - 20mcg per tablet Take 1 tablet by mouth once daily. Take active pill continuously x 3 mo (discard placebo pill) 112 tablet 3 05/02/2022 Active Start: 04-18-2022 End: 05-02-2022 take 1 tablet by mouth once daily AVIANE 0.1-20 mg-mcg per tablet Take 1 tablet by mouth once daily 28 tablet 2 04/18/2022 05/02/2022 Discontinued Start: 04-20-2021 take 1 tablet by keagan th once daily Levonorgestrel-Ethinyl Estrad (AVIANE) 0.1mg - 20mcg per tablet Take 1 tablet by mouth once daily. 30 tablet 11 04/20/2021 Active Comment on above: Take 1 tablet by keagan th once daily. Take 1 tablet by keagan th once daily. Take active pill continuously x 3 mo (discard placebo pill) Take 1 tablet by keagan th once daily Completed/Discontinued Medications Medication Drug Class(es) Dates Sig (Normalized) Sig (Original) midodrine hydrochloride 5 mg oral tablet (8 sources) alpha-Adrenergic Agonist Start: 02-10-2021 End: 12-05-2024 take 2 tablets by mouth three times daily midodrine (PROAMITINE) 5 mg tablet TAKE 2 TABLETS BY MOUTH THREE TIMES DAILY 180 tablet 04/11/2022 12/05/2024 Discontinued Comment on above: Take 2 tablets by mo uth three times daily. TAKE 2 TABLETS BY MO UTH THREE TIMES DAILY ondansetron 4 mg disintegrating oral tablet (7 sources) Serotonin-3 Receptor Antagonist Start: 12-23-2020 End: 12-05-2024 take 1 tablet by mouth every eight hours as needed ondansetron orally disintegrating (ZOFRAN ODT) 4 mg disintegrating tablet Indications: 28 weeks gestation of (FORMERLY [facility]) Take 1 tablet by mouth every 8 hours as needed. DISSOLVE ON TONGUE 30 tablet 1 12/23/2020 12/05/2024 Discontinued Comment on above: Take 1 tablet by keagan th every 8 hours as needed. DISSOLVE ON TONGUE sertraline 50 mg oral tablet (8 sources) Serotonin Reuptake Inhibitor Start: 06-12-2023 End: 12-05-2024 take 1 tablet by mouth once daily sertraline (ZOLOFT) 50 mg tablet Take 1 tablet by mouth once daily. 30 tablet 1 06/12/2023 12/05/2024 Discontinued Start: 04-20-2021 End: 05-02-2022 take 1 tablet by mouth once daily sertraline (ZOLOFT) 50 mg tablet Take 1 tablet by mouth once daily. 30 tablet 11 05/02/2022 Active Comment on above: Take 1 tablet by keagan th once daily. Problems Active Problems Problem Classification Problem Date Documented Date Episodic/Chronic Cardiac dysrhythmias (8 sources) Postural orthostatic tachycardia syndrome ; Translations: [Other specified cardiac arrhythmias] Onset: 01-11-2014 08-02-2020 Chronic Other complications of (1 source) Missed ; Translations: [Missed ([facility]LY [facility])] Onset: 03-19-2025 Episodic Other complications of (1 source) with inconclusive viability, not applicable or unspecified; Translations: [ with inconclusive viability, single or unspecified fetus (FORMERLY [facility])] Onset: 03-09-2025 Episodic Other complications of (1 source) Uterine size-date discrepancy, first trimester; Translations: [Uterine size-date discrepancy, first trimester (HCC)] Onset: 03-09-2025 Episodic Other and delivery including normal (4 sources) with uncertain dates; Translations: [Encounter for supervision of normal , unspecified, unspecified trimester] Onset: 07-04-2018 Resolved: 11-22-2018 11-22-2018 Episodic Residual codes; unclassified (1 source) Procedure not indicated; Translations: [Procedure and treatment not carried out for other reasons] 07-14-2024 Episodic Residual codes; unclassified (2 sources) Personal history of other complications of , childbirth and the puerperium; Translations: [History of prior with IUGR ] Onset: 03-09-2025 Episodic Residual codes; unclassified (1 source) History of uterine scar from previous surgery; Translations: [History of section] Onset: 03-09-2025 Episodic Screening and history of mental health and substance abuse codes (9 sources) H/O: depression; Translations: [Personal history of other mental and behavioral disorders] Onset: 07-04-2018 08-02-2020 Episodic Spontaneous (1 source) Incomplete spontaneous without complication; Translations: [Incomplete spontaneous (HCC)] Onset: 03-24-2025 Episodic Substance-related disorders (15 sources) Cannabis abuse; Translations: [Cannabis abuse, uncomplicated] Onset: 07-05-2018 08-13-2020 Chronic Unclassified (1 source) OPENED IN ERROR Past or Other Problems Problem Classification Problem Date Documented Date Episodic/Chronic Cancer of cervix (8 sources) Low grade squamous intraepithelial lesion on cervical Papanicolaou smear; Translations: [Low grade squamous intraepithelial lesion on cytologic smear of cervix (LGSIL)] Onset: 07-15-2018 04-09-2019 Episodic Conditions associated with dizziness or vertigo (16 sources) Orthostatic hypotension; Translations: [Dizziness and giddiness] Onset: 01-11-2014 01-11-2014 Episodic Contraceptive and procreative management (2 sources) Oral contraception; Translations: [Encounter for surveillance of contraceptive pills] Onset: 12-05-2024 12-05-2024 Episodic Immunizations and screening for infectious disease (4 sources) Requires vaccination; Translations: [Encounter for immunization] Onset: 12-05-2024 Episodic Malposition; malpresentation (3 sources) Breech presentation with problem; Translations: [Maternal care for breech presentation, not applicable or unspecified] Onset: 04-29-2015 Resolved: 10-19-2017 06-06-2021 Episodic Nausea and vomiting (3 sources) Nausea; Translations: [Nausea] Onset: 01-11-2014 Resolved: 11-22-2018 11-22-2018 Episodic Other complications of (3 sources) Anemia of ; Translations: [Anemia complicating , unspecified trimester] Onset: 04-29-2015 Resolved: 10-19-2017 06-06-2021 Chronic Other complications of (8 sources) Supervision of with other poor reproductive or obstetric history, unspecified trimester; Translations: [ with other poor obstetric history] Onset: 07-04-2018 08-02-2020 Episodic Other complications of (5 sources) Nausea and vomiting; Translations: [Vomiting of , unspecified] Onset: 07-04-2018 08-02-2020 Episodic Other complications of (3 sources) Vomiting of , unspecified; Translations: [Unspecified vomiting of , unspecified as to episode of care or not applicable] Onset: 07-04-2018 08-02-2020 Episodic Other complications of (3 sources) Rubella non-immune; Translations: [Supervision of other high risk pregnancies, unspecified trimester] Onset: 04-29-2015 Resolved: 10-19-2017 10-19-2017 Episodic Other complications of (3 sources) High risk ; Translations: [Supervision of high risk , unspecified, third trimester] Onset: 04-29-2015 Resolved: 10-19-2017 06-06-2021 Episodic Other complications of (3 sources) Poor growth affecting management; Translations: [Maternal care for other known or suspected poor growth, unspecified trimester, not applicable or unspecified] Onset: 05-07-2015 Resolved: 10-19-2017 06-06-2021 Episodic Other complications of (3 sources) Maternal tobacco use in ; Translations: [Smoking (tobacco) complicating , unspecified trimester] Onset: 07-04-2018 Resolved: 02-19-2019 02-19-2019 Episodic Other screening for suspected conditions (not mental disorders or infectious disease) (3 sources) Cancer cervix screening status; Translations: [Encounter for screening for malignant neoplasm of cervix] Onset: 12-05-2024 08-16-2023 Episodic Previous (8 sources) ; Translations: [Maternal care for unspecified type scar from previous delivery] Onset: 07-04-2018 08-10-2020 Episodic Residual codes; unclassified (1 source) History of clinical finding in subject; Translations: [Personal history of other specified conditions] Onset: 07-05-2018 07-05-2018 Episodic Residual codes; unclassified (3 sources) Transient alteration of awareness; Translations: [Transient alteration of awareness] Onset: 08-20-2013 Resolved: 02-19-2019 02-19-2019 Episodic Short gestation; low weight; and growth retardation (3 sources) growth restriction; Translations: [IUGR (intrauterine growth restriction)] Onset: 05-05-2015 Resolved: 10-19-2017 06-06-2021 Episodic Results Test Name Value Interpretation Reference Range Facility CBC W Auto Differential pane l (Bld)on 03-27-2025 Basophils (Bld) [#/Vol] 0.03 10*3/uL Normal <=0.70 [facility] Comment on above: Performed By: #### 5 7021-8 #### [place] [address] Chief Psychology - [facility] CLIA [id number] Basophils/100 WBC (Bld) 0.4 % Normal <=2.0 [facility] Comment on above: Performed By: #### 5 7021-8 #### [place] [address] [facility] CL[facility] [id number] Eosinophils (Bld) [#/Vol] 0.12 10*3/uL Normal <=0.70 [facility] Comment on above: Performed By: #### 5 7021-8 #### [place] [address] Chief Psychology - [facility] CLIA [id number] Eosinophils/100 WBC (Bld) 1.4 % Normal <=10.0 [facility] Comment on above: Performed By: #### 5 7021-8 #### [facility] [address] [place] [address] [facility] - [facility] HANLEY [id number] Erythrocyte distribution width (RBC) [Entitic vol] 43.8 fL Normal 36.4-46.3 [facility] Comment on above: Performed By: #### 5 7021-8 #### [address] [place] [address] [facility] - [facility] HANLEY [id number] Hematocrit (Bld) [Volume fraction] 31.6 % Low 37.0-47.0 [facility] Comment on above: Performed By: #### 5 7021-8 #### [address] [place] [address] [facility] - [facility] H[facility] [id number] Hemoglobin (Bld) [Mass/Vol] 10.0 g/dL Low 12.0-16.0 [facility] Comment on above: Performed By: #### 5 7021-8 #### [address] [place] [address] [facility] - [facility] HAN[facility] [id number] Immature granulocytes (Bld) [#/Vol] 0.02 10*3/uL Normal <=0.10 [facility] Comment on above: Performed By: #### 5 7021-8 #### [address] [place] [address] [facility] - [facility] H[facility] [id number] Immature granulocytes/100 WBC (Bld) 0.20 % Normal <=1.50 [facility] Comment on above: Performed By: #### 5 7021-8 #### [address] [facility] [place] [address] [facility] - [facility] HANLEY [id number] Lymphocytes (Bld) [#/Vol] 3.96 10*3/uL High 1.20-3.40 [facility] Comment on above: Performed By: #### 5 7021-8 #### [address] [place] [address] [facility] - [facility] NIXIA [id number] Lymphocytes/100 WBC (Bld) 46.8 % High 20.0-40.0 [facility] Comment on above: Performed By: #### 5 7021-8 #### [facility] [address] [place] [address] [facility] - [facility] NIXIA [id number] MCH (RBC) [Entitic mass] 27.9 pg Normal 27.0-31.0 [facility] Comment on above: Performed By: #### 5 7021-8 #### [address] [place] [address] [facility] - [facility] H[facility] [id number] MCHC (RBC) [Mass/Vol] 31.6 g/dL Low 32.0-36.0 [facility] Comment on above: Performed By: #### 5 7021-8 #### [place] [address] [place] [address] [facility] - [facility] NIXIA [id number] MCV (RBC) [Entitic vol] 88.0 fL Normal 80.0-100.0 [facility] Comment on above: Performed By: #### 5 7021-8 #### [address] [place] [address] [facility] - [facility] NIXIA [id number] Monocytes (Bld) [#/Vol] 0.57 10*3/uL Normal 0.10-0.60 [facility] Comment on above: Performed By: #### 5 7021-8 #### [place] [address] [place] [address] [facility] - [facility] NIXIA [id number] Monocytes/100 WBC (Bld) 6.7 % Normal <=8.0 [facility] Comment on above: Performed By: #### 5 7021-8 #### [address] [place] [address] [facility] - [facility] NIXIA [id number] Neutrophils (Bld) [#/Vol] 3.77 10*3/uL Normal 1.40-6.50 [facility] Comment on above: Performed By: #### 5 7021-8 #### [facility] [address] [place] [address] [facility] - [facility] NIXIA [id number] Neutrophils/100 WBC (Bld) 44.5 % Low 50.0-70.0 [facility] Comment on above: Performed By: #### 5 7021-8 #### [address] [place] [address] [facility] - [facility] NIXIA [id number] Nucleated RBC (Bld) [#/Vol] 0.00 10*3/uL Normal <=0.10 [facility] Comment on above: Performed By: #### 5 7021-8 #### [address] [place] [address] [facility] - [facility] NIXIA [id number] Platelet mean volume (Bld) [Entitic vol] 11.3 fL Normal 9.0-13.0 [facility] Comment on above: Performed By: #### 5 7021-8 #### [address] [place] [address] [facility] - [facility] NIXIA [id number] Platelets (Bld) [#/Vol] 206 10*3/uL Normal 130-400 [facility] Comment on above: Performed By: #### 5 7021-8 #### [address] [place] [address] [facility] - [facility] NIXIA [id number] RBC (Bld) [#/Vol] 3.59 10*6/uL Low 4.00-6.30 [facility] Comment on above: Performed By: #### 5 7021-8 #### [address] [place] [address] [facility] - [facility] NIXIA [id number] WBC (Bld) [#/Vol] 8.47 10*3/uL Normal 4.80-10.80 [facility] Comment on above: Performed By: #### 5 7021-8 #### [facility] [address] [place] [address] [facility] - [facility] HAN[facility] [id number] Comprehensive metabolic 2000 panelon 03-27-2025 Albumin [Mass/Vol] 4.0 g/dL Normal 3.4-5.0 [facility] Comment on above: Performed By: #### 2 4323-8, #### [facility] [address] [place] [address] [facility] - [facility] HAN[facility] [id number] ALP [Catalytic activity/Vol] 34 U/L Low 50-136 [facility] Comment on above: Performed By: #### 2 4323-8, #### [facility] [address] [place] [address] [facility] - [facility] NIXIA [id number] ALT [Catalytic activity/Vol] 7 U/L Low 14-59 [facility] Comment on above: Performed By: #### 2 4323-8, #### [facility] [address] [place] [address] [facility] - [facility] NIXIA [id number] Anion gap [Moles/Vol] 10.0 mmol/L Normal <=15.0 [facility] Comment on above: Performed By: #### 2 4323-8, #### [facility] [address] [place] [address] [facility] - [facility] NIXIA [id number] AST [Catalytic activity/Vol] 17 U/L Normal 15-37 [facility] Comment on above: Performed By: #### 2 4323-8, #### [facility] [address] [place] [address] [facility] - [facility] NIXIA [id number] Bilirubin [Mass/Vol] 0.2 mg/dL Normal 0.2-1.0 [facility] Comment on above: Performed By: #### 2 4323-8, #### [facility] [address] [place] [address] [facility] - [facility] NIXIA [id number] Calcium [Mass/Vol] 8.8 mg/dL Normal 8.5-10.1 [facility] Comment on above: Performed By: #### 2 432-8, #### [facility] [address] [place] [address] [facility] - [facility] NIXIA [id number] Chloride [Moles/Vol] 108 mmol/L High 98-107 [facility] Comment on above: Performed By: #### 2 432-8, #### [facility] [address] [place] [address] [facility] - [facility] NIXIA [id number] CO2 [Moles/Vol] 26 mmol/L Normal 21-32 [facility] Comment on above: Performed By: #### 2 432-8, #### [facility] [address] [place] [address] [facility] - [facility] NIXIA [id number] Creatinine [Mass/Vol] 0.62 mg/dL Normal 0.51-0.95 [facility] Comment on above: Performed By: #### 2 4323-8, #### [facility] [address] [place] [address] Chief Psychology - [facility] Medeiros CLIA [id number] GFR/1.73 sq M.predicted MDRD (S/P/Bld) [Vol rate/Area] mL/min/{1.73_m2} Normal >=60 [facility] Comment on above: Performed By: #### 2 4323-8, #### [facility] [address] [place] [address] [facility] - [facility] NIXIA [id number] Glucose [Mass/Vol] 74 mg/dL Normal 74-106 [facility] Comment on above: Performed By: #### 2 4323-8, #### [facility] [address] [facility]. [place] [address] [facility] Psychology - [facility] HANLEY [id number] HGFR GLOMERULAR FILTRATIO N RATE INTERPRETATION~The eGFR is calculated using the MDRD equation.~This equation has been validated in patients with chronic kidney disease;~however, it underestimates the GFR in healthy patients with GFR's over 60 mL/min.~The equation is not valid in children under the age of 18.~NOTE: Criteria for Chronic Kidney Disease:~ ~1. Kidney damage for at least three months, as defined~by structural or functional abnormalities of the kidney,~with or without decreased glomerular filtration rate, manifested by either:~* Pathological abnormalities or~* Markers of Kidney damage, including abnormalities in~the composition of the blood or urine or abnormalities in imaging tests.~ ~2. GFR <60 mL/min/1.73 m squared for at least three months, with or without kidney damage.~ Normal [facility] Comment on above: Performed By: #### 2 4323-8, #### [facility] [address] [facility]. [place] [address] [facility] - [facility] HAN[facility] [id number] Potassium [Moles/Vol] 3.3 mmol/L Low 3.5-5.1 [facility] Comment on above: Performed By: #### 2 4323-8, #### [facility] [address] [facility]. [place] [address] [facility] - [facility] HAN[facility] [id number] Protein [Mass/Vol] 6.6 g/dL Normal 6.4-8.2 [facility] Comment on above: Performed By: #### 2 4323-8, #### [facility] [address] [place] [address] [facility] - [facility] HANLEY [id number] Sodium [Moles/Vol] 144 mmol/L Normal 136-145 [facility] Comment on above: Performed By: #### 2 432-8, #### [facility] [address] [place] [address] [facility] - [facility] HANLEY [id number] Urea nitrogen [Mass/Vol] mg/dL Low 12-25 [facility] Comment on above: Performed By: #### 2 4323-8, #### [facility] [address] [place] [address] [facility] - [facility] HAN[facility] [id number] HCG BLOODon 03-27-2025 HCG.beta subunit Qn 4116 m[IU]/mL High 1-3 [facility] Comment on above: Performed By: #### 2 4323-8, #### [facility] [address] [place] [address] [facility] - [facility] HANLEY [id number] HCG.beta subunit Qnon 2024 [facility] HCG INTERPRETATION T he expected values were calculated non-parametrically and represent the central 95% of the population. When borderline results are encountered, patient samples should be drawn 48 hours later. The concentration of HCG rises rapidly during early . Gestational Age Expected HCG Values 0.2-1 week 5-50 1-2 weeks 50-500 2-3 weeks 100-5000 3-4 weeks 500-10,000 4-5 weeks 1000-50,000 5-6 weeks 10,000-100,000 6-8 weeks 15,000-200,000 2-3 months 10,000-100,000 Normal [facility] Comment on above: Performed By: #### 2 4323-8, #### [facility] [address] [place] [address] [facility] - [facility] H[facility] [id number] URINALYSIS with MICROSCOPICo n 03-27-2025 Ammonium urate crystals LM Ql (Urine sed) Normal NONE SEEN [facility] Comment on above: Performed By: #### U AMR #### [facility] [address] [place] [address] [facility] - [facility] H[facility] [id number] Performed for [place] [address] [place], [place] [address] Amorphous sediment LM Ql (Urine sed) Normal NONE SEEN [facility] Comment on above: Performed By: #### U AMR #### [facility] [address] [place], [place] [address] [facility] - [facility] H[facility] [id number] Performed for [facility] [address] [place], [place] [address] Bacteria LM Ql (Urine sed) TRACE Normal TRACE [facility] System Comment on above: Performed By: #### U AMR #### [facility] [address] [place], [place] [address] Chief Psychology - Tenisha HANLEY [id number] Performed for [facility] [address] [place], [place] [address] Bilirubin (U) [Mass/Vol] Negative Normal NEGATIVE [facility] Comment on above: Performed By: #### U AMR #### [facility] [address] [place], [place] [address] Chief Psychology - Tenisha HANLEY [id number] Performed for [facility] [address] [place], [place] [address] Calcium carbonate crystals LM Ql (Urine sed) Normal NONE SEEN [facility] Comment on above: Performed By: #### U AMR #### [facility] [address] [place], [place] [address] Chief Psychology - Tenisha HANLEY [id number] Performed for [facility] [address] [place], [place] [address] Calcium oxalate crystals LM Ql (Urine sed) Normal FEW [facility] Comment on above: Performed By: #### U AMR #### [facility] [address] [place], [place] [address] Chief Psychology - Tenisha HANLEY [id number] Performed for [facility] [address] [place], [place] [address] Calcium phosphate crystals LM Ql (Urine sed) Normal NONE SEEN [facility] Comment on above: Performed By: #### U AMR #### [facility] [address] [place] [address] Chief Psychology - Tenisha HANLEY [id number] Performed for [facility] [address] [place], [place] [address] Cholesterol crystals LM Ql (Urine sed) Normal NONE SEEN [facility] Comment on above: Performed By: #### U AMR #### [facility] [address] [place], [place] [address] Chief Psychology - Tenisha HANLEY [id number] Performed for [facility] [address] [place], [place] [address] Clarity (U) Slightly Cloudy Abnormal CLEAR [facility] Comment on above: Performed By: #### U AMR #### [facility] [address] [place] [address] Chief Psychology - Tenisha HANLEY [id number] Performed for [facility] [address] [place], [place] [address] Coarse Granular Casts LM.LPF (Urine sed) [#/Area] Normal NONE SEEN [facility] Comment on above: Performed By: #### U AMR #### [facility] [address] [place] [address] Chief Psychology - TenishaUAB [facility] HANLEY [id number] Performed for [facility] [address] [place], [place] [address] Color (U) [place] Abnormal YELLOW [facility] Comment on above: Performed By: #### U AMR #### [facility] [address] [place] [address] Chief Psychology - Tenisha HANLEY [id number] Performed for [facility] [address] [place], [place] [address] Cystine crystals LM.HPF (Urine sed) [#/Area] Normal NONE SEEN [facility] Comment on above: Performed By: #### U AMR #### [facility] [address] [place] [address] Chief Psychology - Tenisha HANLEY [id number] Performed for [facility] [address] [place], [place] [address] Epithelial cells.renal LM.HPF (Urine sed) [#/Area] Normal NONE SEEN [facility] Comment on above: Performed By: #### U AMR #### [facility] [address] [place], [place] [address] Chief Psychology - Tenisha HANLEY [id number] Performed for [facility] [address] [place], [place] [address] Epithelial cells.squamous LM.LPF (Urine sed) [#/Area] 6-10 Abnormal 0-5 [facility] Comment on above: Performed By: #### U AMR #### [facility] [address] [place] [address] Chief Psychology - Tenisha HANLEY [id number] Performed for [facility] [address] [place], [place] [address] FATTY CASTS Normal NONE SEEN [facility] Comment on above: Performed By: #### U AMR #### [facility] [address] [place] [address] Chief Psychology - Tenisha HANLEY [id number] Performed for [facility] [address] [place], [place] [address] Fine Granular Casts LM.LPF (Urine sed) [#/Area] Normal NONE SEEN [facility] Comment on above: Performed By: #### U AMR #### [facility] [address] [place] [address] Chief Psychology - Tenisha HANLEY [id number] Performed for [facility] [address] [place], [place] [address] Glucose Test strip (U) [Mass/Vol] Negative Normal NEGATIVE [facility] Comment on above: Performed By: #### U AMR #### [facility] [address] [place], [place] [address] Chief Psychology - Tenisha Waldemar HANLEY [id number] Performed for [facility] [address] [place], [place] [address] GRAN Normal [facility] Comment on above: Performed By: #### U AMR #### [facility] [address] [place] [address] Chief Psychology - Tenisha HANLEY [id number] Performed for [facility] [address] [place], [place] [address] Hippurate crystals LM Ql (Urine sed) Normal NONE SEEN [facility] Comment on above: Performed By: #### U AMR #### [facility] [address] [place] [address] Chief Psychology - Tenisha HANLEY [id number] Performed for [facility] [address] [place], [place] [address] HMICRO MANUAL MICROSCOPIC Normal [facility] Comment on above: Performed By: #### U AMR #### [facility] [address] [place] [address] Chief Psychology - Tenisha HANLEY [id number] Performed for [facility] [address] [place], [place] [address] Hyaline casts (Urine sed) [#/Area] Normal 0-8 [facility] Comment on above: Performed By: #### U AMR #### [facility] [address] [place] [address] Chief Psychology - Tenisha AHNLEY [id number] Performed for [facility] [address] [place], [place] [address] Ketones (U) [Mass/Vol] Negative Normal NEGATIVE [facility] Comment on above: Performed By: #### U AMR #### [facility] [address] [place] [address] Chief Psychology - Tenisha HANLEY [id number] Performed for [facility] [address] [place], [place] [address] Leucine crystals LM Ql (Urine sed) Normal NONE SEEN [facility] Comment on above: Performed By: #### U AMR #### [facility] [address] [place] [address] Chief Psychology - Tenisha HANLEY [id number] Performed for [facility] [address] [place] [address] Leukocyte esterase Qn (U) 2+ Ismael/uL Abnormal TRACE [facility] Comment on above: Performed By: #### U AMR #### [facility] [address] [place] [address] Chief Psychology - Tenisha HANLEY [id number] Performed for [facility] [address] [place], [place] [address] Microscopic observation Gram stain Nom (Unsp spec) Normal NONE SEEN [facility] Comment on above: Performed By: #### U AMR #### [facility] [address] [place], [place] [address] Chief Psychology - Tenisha HANLEY [id number] Performed for [facility] [address] [place], [place] [address] Mucus Ql (Urine sed) TRACE Normal TRACE [facility] Comment on above: Performed By: #### U AMR #### [facility] [address] [place] [address] Chief Psychology - Tenisha HANLEY [id number] Performed for [facility] [address] [place], [place] [address] Nitrite Ql (U) Negative Normal NEGATIVE [facility] Comment on above: Performed By: #### U AMR #### [facility] [address] [place] [address] Chief Psychology - TenishaBristol-Myers Squibb Children's HospitalRACH [id number] Performed for [facility] [address] [place], [place] [address] pH (U) 6.0 [pH] Normal 5.5-7.5 [facility] Comment on above: Performed By: #### U AMR #### [facility] [address] [place] [address] Chief Psychology - Tenisha HANLEY [id number] Performed for [facility] [address] [place], [place] [address] Phosphate crystals amorphous LM Ql (Urine sed) Normal NONE SEEN [facility] Comment on above: Performed By: #### U AMR #### [facility] [address] [place] [address] Chief Psychology - TenishaBristol-Myers Squibb Children's HospitalRACH [id number] Performed for [facility] [address] [place], [place] [address] Protein (U) [Mass/Vol] 2+ mg/dL Abnormal NEGATIVE [facility] Comment on above: Performed By: #### U AMR #### [facility] [address] [place] [address] Chief Psychology - Tenisha HANLEY [id number] Performed for [facility] [address] [place], [place] [address] RBC (U) [#/Vol] 3+ mg/dL Abnormal NEGATIVE [facility] Comment on above: Performed By: #### U AMR #### [facility] [address] [place] [address] Chief Psychology - Tenisha HANLEY [id number] Performed for [facility] [address] [place], [place] [address] RBC casts LM.LPF (Urine sed) [#/Area] Normal NONE SEEN [facility] Comment on above: Performed By: #### U AMR #### [facility] [address] [place] [address] Chief Psychology - Tenisha HANLEY [id number] Performed for [place] [address] [place], [place] [address] RBC LM.HPF (Urine sed) [#/Area] 50-100 Abnormal 0-4 [facility] Comment on above: Performed By: #### U AMR #### [place] [address] [place] [address] Chief Psychology - Tenisha HANLEY [id number] Performed for [place] [address] [place] [address] Specific gravity (U) [Rel density] <=1.005 Low 1.010-1.035 [facility] Comment on above: Performed By: #### U AMR #### [facility] [address] [place] [address] Chief Psychology - Tenisha HANLEY [id number] Performed for [facility] [address], [place] [address] SQUAMOUS EPITHELIALS Normal 0-5 [facility] Comment on above: Performed By: #### U AMR #### [place] [address] [place] [address] Chief Psychology - Tenisha HANLEY [id number] Performed for [facility] [address] [place], [place] [address] Starch granules LM Ql (Urine sed) Normal NONE SEEN [facility] Comment on above: Performed By: #### U AMR #### [facility] [address] [place], [place] [address] Chief Psychology - Tenisha HANLEY [id number] Performed for [facility] [address] [place], [place] [address] Sulfonamide crystals LM Ql (Urine sed) Normal NONE SEEN [facility] Comment on above: Performed By: #### U AMR #### [facility] [address] [place], [place] [address] Chief Psychology - Tenisha HANLEY [id number] Performed for [facility] [address] [place], [place] [address] TRANSITIONAL EPITHEL Normal NONE SEEN [facility] Comment on above: Performed By: #### U AMR #### [facility] [address] [place] [address] Chief Psychology - Tenisha HANLEY [id number] Performed for [facility] [address] [place], [place] [address] Triple phosphate crystals LM Ql (Urine sed) Normal NONE SEEN [facility] Comment on above: Performed By: #### U AMR #### [facility] [address] [place], [place] [address] Chief Psychology - Tenisha HANLEY [id number] Performed for [facility] [address] [place], [place] [address] Tyrosine crystals LM Ql (Urine sed) Normal NONE SEEN [facility] Comment on above: Performed By: #### U AMR #### [facility] [address] [place], [place] [address] Chief Psychology - Tenisha HANLEY [id number] Performed for [facility] [address] [place], [place] [address] Urate crystals LM Ql (Urine sed) Normal NONE SEEN [facility] Comment on above: Performed By: #### U AMR #### [facility] [address] [place] [address] Chief Psychology - Tenisha HANLEY [id number] Performed for [facility] [address] [place], [place] [address] Urobilinogen Qn (U) Normal <=1.0 [facility] Comment on above: Result Comment: 0.2 E.U./dL Performed By: #### U AMR #### [facility] [address] [place] [address] Chief Psychology - Tenisha HANLEY [id number] Performed for [facility] [address] [place] [address] Waxy casts LM Ql (Urine sed) Normal NONE SEEN [facility] Comment on above: Performed By: #### U AMR #### [facility] [address] [place] [address] Chief Psychology - Tenisha HANLEY [id number] Performed for [facility] [address], [place] [address] WBC casts LM.LPF (Urine sed) [#/Area] Normal NONE SEEN [facility] Comment on above: Performed By: #### U AMR #### [facility] [address] [place] [address] Chief Psychology - Tenisha HANLEY [id number] Performed for [facility] [address], [place] [address] WBC LM.HPF (Urine sed) [#/Area] 6-10 Abnormal 0-5 [facility] Comment on above: Performed By: #### U AMR #### [place] [address] [place] [address] Chief Psychology - Tenisha HANLEY [id number] Performed for [facility] [address] [place], [place] [address] Yeast.budding LM.HPF (Urine sed) [#/Area] Normal NONE SEEN [facility] Comment on above: Performed By: #### U AMR #### [place] [address] [place] [address] Chief Psychology - Tenisha HANLEY [id number] Performed for [facility] [address], [place] [address] Yeast.pseudohyphae LM Ql (Urine sed) Normal NONE SEEN [facility] Comment on above: Performed By: #### U AMR #### [facility] [address] [place], [place] [address] Chief Psychology - Tenisha HANLEY [id number] Performed for [facility] [address] [place], [place] [address] Delisa 03-10-2025 CNPN Telephone (OGFVWE) RUTHANN MOSLEY ([id number]) 1995 F Date Time Provider Department 03/10/25 NURSE CLEANING CUSTODIAN [facility] [place] [facility] During your visit today, we recorded the following information about you: Sergio Snowden RN 03/10/2025 10:20 AM Signed 1st risk assessment form submitted 03/10/2025. Sergio Snowden RN Allergies As of Date: 03/10/2025 Noted Allergy Reaction CODEINE 03/27/2011 5 - Intolerance Comments: adverse reaction HYDROCODONE 09/03/2013 8 - GI Upset Comments: pain in abdomen ULTRAM (TRAMADOL) 03/27/2011 1 - Mental Status Change Date Reviewed: 03/09/2025 Reviewed by: Carmella James LPN - Fully Assessed Reason for Visit: PRAF [4193] Prescriptions as of 03/10/2025 - aspirin, enteric coated (ECOTRIN LOW STRENGTH) 81 mg EC tablet Take 1 tablet by mouth once daily. - ondansetron orally disintegrating (ZOFRAN ODT) 4 mg disintegrating tablet Take 1 tablet by mouth every 8 hours as needed for nausea/vomiting. - PNV24/iron cbn,gluc/FA/dss/dha (PRENATE ORAL) Take 1 tablet by mouth once daily. Problem List As Of Date 03/10/2025 Noted Resolved Awareness alteration, transient [R40.4] 08/20/2013 02/19/2019 Nausea [R11.0] 01/11/2014 11/22/2018 Orthostatic lightheadedness [R42] 01/11/2014 Dizziness [R42] 01/11/2014 POTS (postural orthostatic tachycardia syndrome*01/11/2014 Anemia in [O99.019] 04/29/2015 10/19/2017 Rubella non-immune status, antepartum [O09.899,*04/29/2015 10/19/2017 Breech presentation with problem [O32*04/29/2015 10/19/2017 Supervision of high risk in third tri*04/29/2015 10/19/2017 IUGR (intrauterine growth restriction) [HHY2138]05/05/2015 10/19/2017 IUGR (intrauterine growth restriction) affectin*05/07/2015 10/19/2017 with uncertain dates [Z34.90] 07/04/2018 11/22/2018 with history of section, ant*07/04/2018 IUGR (intrauterine growth restriction) in prior*07/04/2018 History of depression [Z86.59] 07/04/2018 Nausea and vomiting in (HCC) [O21.9] 07/04/2018 03/09/2025 Tobacco use during [O99.330] 07/04/2018 02/19/2019 History of marijuana use [F12.91] 07/05/2018 03/09/2025 Papanicolaou smear of cervix with low grade squ*07/15/2018 Cannabis use disorder, mild, abuse [F12.10] 08/13/2020 03/09/2025 History of prior with IUGR [Z*03/09/2025 03/09/2025 History of section [Z98.891] 03/09/2025 History of depression [Z87.59, Z86.5*03/09/2025 Encounter Status:Closed by SERGIO SNOWDEN on 03/10/25 Normal [facility] BACTERIAL VAGINOSIS NAATon 0 03-09-2025 Lactobacillus crispatus+gasseri+je nsenii + Gardnerella vaginalis + Atopobium vaginae rRNA KANDACE+probe Ql (Vag fld) Detected Abnormal Not detected [facility] Comment on above: Order Comment: Speci men Type: FLUID SPECIMEN Ordering Facility: [facility] Address: [address] [place] [address] Performed By: #### L [id number] #### [facility] CLIA [id number] [address] [place] [address] [place] Bacteria Ur Culton Bacteria identified Cx Nom (U) ORGANISM ID: 1 <10,000 CFU/ml Normal urogenital miya Normal [facility] Comment on above: Performed By: #### L [id number] #### [facility] CLIA [id number] [address] [place] [address] [place] C. trachomatis+N. gonorrhoea e DNA KANDACE+probe Ql (Unsp spec)on 03-09-2025 C. trachomatis rRNA KANDACE+probe Ql (Unsp spec) Not detected Normal Not detected [facility] Comment on above: Order Comment: Speci men Type: FLUID SPECIMEN Ordering Facility: [facility] Address: [address] [place] [address] Performed By: #### L [id number] #### [facility] CLIA [id number] [address] [place] [address] [place] N. gonorrhoeae rRNA KANDACE+probe Ql (Unsp spec) Not detected Normal Not detected [facility] Comment on above: Order Comment: Speci men Type: FLUID SPECIMEN Ordering Facility: [facility] Address: [address] [place] [address] Performed By: #### L [id number] #### [facility] CLIA [id number] [address] [place] [address] [place] GIULIANA/TRICHOMONAS NAATon 0 03-09-2025 C. glabrata RNA KANDACE+probe Ql (Vag fld) Not detected Normal Not detected [facility] Comment on above: Order Comment: Speci men Type: FLUID SPECIMEN Ordering Facility: [facility] Address: [address] [place] [address] Performed By: #### L [id number] #### [facility] CLIA [id number] [address] [place] [address] [place] Giuliana sp DNA KANDACE+probe Ql (Vag fld) Not detected Normal Not detected [facility] Comment on above: Order Comment: Speci men Type: FLUID SPECIMEN Ordering Facility: [facility] Address: [address] [place] [address] Result Comment: The Giuliana species group target includes C. albicans, C. tropicalis, C. parapsilosis, and C. dubliniensis. Performed By: #### L [id number] #### [facility] CLIA [id number] [address] [place] [address] [place] T. vaginalis DNA KANDACE+probe Ql (Unsp spec) Not detected Normal Not detected [facility] Comment on above: Order Comment: Speci men Type: FLUID SPECIMEN Ordering Facility: [facility] Address: [address] [place] [address] Performed By: #### L [id number] #### [facility] CLIA [id number] [address] [place] [address] [place] C. trachomatis+N. gonorrhoea e DNA KANDACE+probe Ql (Unsp spec)on 12-05-2024 C. trachomatis rRNA KANDACE+probe Ql (Unsp spec) Not detected Normal Not detected [facility] Comment on above: Order Comment: Speci men Type: SWAB Ordering Facility: [facility] Address: [address] [place] [address] Performed By: #### 3 [id number] #### [facility] CLIA [id number] [address] [place] [address] [place] N. gonorrhoeae rRNA KANDACE+probe Ql (Unsp spec) Not detected Normal Not detected [facility] Comment on above: Order Comment: Speci men Type: SWAB Ordering Facility: [facility] Address: [address] [place] [address] Performed By: #### 3 [id number] #### [facility] CLIA [id number] [address] [place] [address] [place] [facility] CNOVon 12-05-2024 CNOV Office Visit (OBGYWM ) RUTHANN MOSLEY ([id number]) 1995 F Date Time Provider Department 12/05/24 11:00 AM LINAD ALDRIDGE OBGYWM During your visit today, we recorded the following information about you: Blood pressure Weight Height Last Period 45.4 kg 1.6 m 11/14/24 Linda Aldridge APRN.PROPERTY CUSTODIAN 12/05/2024 12:08 PM Signed Hull Inspector offered: Patient declines. Ruthann is a 29 year old who presents for an annual gynecologic exam without complaints. Still get period: Yes LMP: 11/14/2024 Menses:menses every 28-30 days lasting 3-5 days Bleeding amount bothersome: No Bleeding between periods: No Period symptoms: Breast tenderness; Cramps; Mood change Contraception: condoms HPV vaccine: Yes control frequency: Always Last pap smear: 08/16/2023 ASCUS HPV:negative History of abnormal pap: Yes, history of abnormal PAP smears 07/04/2018 Pap LSIL 04/02/2019 Pap ASC-H HPV other high risk positive 08/25/2019 colposcopy benign 04/30/2020 and 04/30/2021 - normal Paps 08/16/2023 ASCUS HPV negative Time with current partner: 7 years plus Patient concern for STD exposure:no Number of lifetime partners: 4 Bothersome pelvic pain: No Last mammogram: never OB History Gravida3 Para3 Term3 Preterm0 AB0 Living3 SAB0 IAB0 Ectopic0 Multiple0 Live Births3 [employer] Combination History LMP: 11/14/2024, Unknown Age at Menarche: 13 Age at First : Age at Menopause: [employer] Combination History Comments: Sexual Activity: Yes; Male Contraception: Pill Menstrual Tracking History Flowsheet Row Office Visit from 12/05/2024 in OB/Gynecology Period Cycle (Days) 29 Period Duration (Days) 5 Menstrual Flow Light PAST MEDICAL HISTORY Diagnosis Date Anemia Anxiety Depression fracture age 11 right arm fracture ulna and radius Hypertension POTS Papanicolaou smear of cervix with low grade squamous intraepithelial lesion (LGSIL) 07/15/2018 PAST SURGICAL HISTORY Procedure Laterality Date ANESTH, SECTION DELIVERY ONLY 05/11/15, 02/13/2019, 03/10/21 , low transverse TONSILLECTOMY HX 2010 FAMILY HISTORY Problem Relation Age of Onset Thyroid Mother No Known Problems Father ADD/ADHD Sister Asthma Brother No Known Problems Brother Diabetes Maternal Grandmother No Known Problems Maternal Grandfather Diabetes Paternal Grandmother Diabetes Paternal Grandfather No Known Problems Daughter SOCIAL HISTORY Social History Tobacco Use Smoking status: Former Types: Cigarettes Passive exposure: Current Smokeless tobacco: Never Tobacco comments: 2 a day Vaping Use Vaping status: Never Used Substance Use Topics Alcohol use: No Drug use: No Comment: quit weed 1 year ago REVIEW OF SYSTEMS Abdomen: No abdominal pain, nausea, vomiting, diarrhea, or constipation. No bloating, early satiety, indigestion, or increased flatulence. Bladder: No dysuria, gross hematuria, urinary frequency, urinary urgency, or incontinence. Breast: No breast lumps, nipple d/c, overlying skin changes, redness or skin retraction. Allergies and current medication updated:Yes SENSITIVE EXAM: The sensitive examination was discussed with the Patient or Patient's Authorized Web Communications Specialist. As applicable, any other physician, advance practice provider, medical student, or other health professional student that will be observing or involved in the sensitive examination for educational or training purposes was discussed with the Patient or Authorized Web Communications Specialist. The Patient or Authorized Web Communications Specialist has agreed to proceed with the sensitive examination. (Sensitive examination includes inspection and/or palpation of the breasts, pelvis, prostate and anorectal regions). EXAM: BP 106/62 Ht 5' 3 (1.60m) Wt 100 lb (45.4kg) LMP 11/14/2024 BMI 17.72 kg/(m2). GENERAL: pleasant, female in no apparent distress HEENT: Normocephalic, atraumatic, mucus membranes moist, and no lesions NECK: Supple, full range of motion, no adenopathy, and thyroid normal DERMATOLOGY: Normal, without lesions, non-icteric, and non-hirsute BREAST: soft, non-tender, symmetric, no dominant mass, normal nipple-areolar complex, no lymphadenopathy, and no nipple discharge CHEST: Normal inspiratory effort ABDOMEN: soft, non-tender, and no masses PELVIC: external genitalia normal, normal Bartholin's glands, urethra, [place]'s glands, no vulvar lesions, no cervical lesions, good vaginal support, physiologic discharge present, normal appearing perineal body and perianal region BIMANUAL: uterus normal size, shape and consistency, no adnexal masses, and non-tender RECTOVAGINAL: deferred. NEURO: alert and oriented x3,exam grossly non-focal EXTREMITIES: normal ASSESSMENT/PLAN: 1) Health maintenance: Pap done with reflex HPV. Nutrition, exercise and routine health maintenance exams reviewed. HPV vaccine: c (more content not included)... Normal [facility] PAP TESTon 12-05-2024 ADEQUACY Normal [facility] Comment on above: Order Comment: Speci men Type: FLUID SPECIMEN Ordering Facility: [facility] Address: [address] [place] [address] Result Comment: John Paul sfactrui for interpretation. No endocervical component Performed By: #### L [id number] #### [facility] CLIA [id number] [address] [place] [address] [place] CASE REPORT Normal [facility] Comment on above: Order Comment: Speci men Type: FLUID SPECIMEN Ordering Facility: [facility] Address: [address] [place] [address] Result Comment: Gyne cologic Cytology Report Case: [id number] Authorizing Provider: Linda Aldridge APRN.PROPERTY CUSTODIAN Collected: 12/05/2024 12:30 PM Ordering Location: OB/Gynecology Received: 12/05/2024 04:29 PM First Screen: Viviana Sanchez, CT, ASCP Rescreen: Sharri Jolly, CT, ASCP Specimen: Pap Test, ThinPrep, Cervix Performed By: #### L [id number] #### [facility] CLIA [id number] [address] [place] [address] [place] CLINICAL HISTORY, CYTOLOGY, DIETIST Routine Exam Normal [facility] Comment on above: Order Comment: Speci men Type: FLUID SPECIMEN Ordering Facility: [facility] Address: [address] [place] [address] Performed By: #### L [id number] #### [facility] CLIA [id number] [address] [place], [place] [id number] [place] CYTOLOGY PAP OTHER INTERPRETATION Predominance of coccobacilli consistent with shift in vaginal miya. Normal [facility] Comment on above: Order Comment: Speci men Type: FLUID SPECIMEN Ordering Facility: [facility] Address: [address] [place] [address] Performed By: #### L [id number] #### [facility] CLIA [id number] [address] [place], [place] [id number] [place] FINAL PERFORMING LAB Normal [facility] Comment on above: Order Comment: Speci men Type: FLUID SPECIMEN Ordering Facility: [facility] Address: [address] [place] [address] Result Comment: Tech nical component, biochemistry technologist screening performed at: [facility], [address] [place], [place] [id number] CLIA: [id number] Diagnostic interpretation performed at: [facility], [address] [place] [address] [place] [address] CLIA# [id number] Linux Consultant: Fransisco Alas MD Performed By: #### L [id number] #### [facility] CLIA [id number] [address] [place] [address] [place] INTERPRETATION, CYTOLOGY, DIETIST Normal [facility] Comment on above: Order Comment: Speci men Type: FLUID SPECIMEN Ordering Facility: [facility] Address: [address] [place] [address] Result Comment: Nega tive for intraepithelial lesion or malignancy. at 1651 EDT Performed By: #### L [id number] #### [facility] CLIA [id number] [address] [place], [place] [id number] [place] LMP 11/14/2024 Normal [facility] Comment on above: Order Comment: Speci men Type: FLUID SPECIMEN Ordering Facility: [facility] Address: [address] [place] [address] Performed By: #### L [id number] #### [facility] CLIA [id number] [address] [place] [address] [place] PAP DISCLAIMER COMMENT The Pap Smear is a screening test for cervical cancer. False negative results occur with all screening tests, emphasizing the need for rescreening at recommended intervals, and clinical correlation. Normal [facility] Comment on above: Order Comment: Speci men Type: FLUID SPECIMEN Ordering Facility: [facility] Address: [address] [place] [address] Performed By: #### L [id number] #### [facility] CLIA [id number] [address] [place] [address] [place] PAP NC MACHINIST COMMENT This specimen has be en analyzed by the FDA-approved FarmiaTM System, which uses digital imaging and an enhanced artificial intelligence image analysis algorithm to identify berger of interest on the microscopic slide, to assist the cork insulator helper and pathologist in evaluating cells on ThinPrep Pap tests. Following analysis, berger of interest on the microscopic slide selected by the algorithm are reviewed by a cork insulator helper. If a sample requires hierarchical review, the pathologist will review the same berger of interest selected by the algorithm prior to final interpretation. Normal [facility] Comment on above: Order Comment: Speci men Type: FLUID SPECIMEN Ordering Facility: [facility] Address: [address] [place] [address] Performed By: #### L [id number] #### [facility] CLIA [id number] [address] [place], [place] [id number] [place] Vital Signs Date Time Vital Sign Value Performing Clinician Nathaly gleason 12-05-2024 11:06-0400 Body height 160 cm Linda Aldridge APRN.PROPERTY CUSTODIAN Work Phone: [facility] 12-05-2024 11:06-0400 Body mass index (BMI) [Ratio] 17.71 kg/m2 Linda Aldridge APRN.PROPERTY CUSTODIAN Work Phone: [facility] 12-05-2024 11:06-0400 Body weight 45.36 kg Linda Aldridge APRN.PROPERTY CUSTODIAN Work Phone: [facility] 12-05-2024 11:06-0400 Diastolic blood pressure 62 mm[Hg] Linda Aldridge APRN.PROPERTY CUSTODIAN Work Phone: [facility] 12-05-2024 11:06-0400 Systolic blood pressure 106 mm[Hg] Linda Aldridge APRN.PROPERTY CUSTODIAN Work Phone: [facility] 08-16-2023 14:58-0500 Body height 156.8 cm Lu Plotts RN CLINICIAN.CNM Work Phone: [facility] 08-16-2023 14:58-0500 Body weight 51.12 kg Lu Plotyuri RN CLINICIAN.CNM Work Phone: [facility] 08-16-2023 14:58-0500 Diastolic blood pressure 60 mm[Hg] Lu Plotts RN CLINICIAN.CNM Work Phone: [facility] 08-16-2023 14:58-0500 Systolic blood pressure 98 mm[Hg] Lu Plotts RN CLINICIAN.CNM Work Phone: [facility] 05-02-2022 12:56-0500 Body height 157.5 cm Grace Moser MD Work Phone: [facility] 05-02-2022 12:56-0500 Body weight 48.99 kg Grace Moser MD Work Phone: [facility] 05-02-2022 12:56-0500 Diastolic blood pressure 64 mm[Hg] Grace Moser MD Work Phone: [facility] 05-02-2022 12:56-0500 Systolic blood pressure 102 mm[Hg] Grace Moser MD Work Phone: [facility] Encounters Encounter Date Encounter Type Care Provider Facility Start: 04-02-2025 ambulatory No Primary Car e Physician Facility:[facility] Start: 03-27-2025 End: 03-27-2025 Emergency department patient visit NONE NONE Facility:[facility] Start: 03-27-2025 End: 03-27-2025 ambulatory [facility] Facility:[facility] Start: 03-24-2025 End: 03-24-2025 ambulatory [facility] Facility:[facility] Start: 03-19-2025 End: 03-19-2025 ambulatory [facility] Facility:[facility] Start: 03-09-2025 End: 03-09-2025 ambulatory ELISHA JONES Facility:[facility] Start: 12-07-2024 End: 02-06-2025 Follow-up encounter Linda Aldridge APRN.CNP Work Phone: OB/Gynecology Start: 12-05-2024 End: 12-05-2024 Patient encounter procedure Linda Aldridge APRN.CNP Work Phone: OB/Gynecology Comment on above: Encounter for gyneco logical examination (general) (routine) without abnormal findings (Primary Dx); Screening for cervical cancer; Screen for STD (sexually transmitted disease); Surveillance for control, oral contraceptives Start: 12-05-2024 End: 12-05-2024 Patient encounter status Linda Aldridge APRN.CNP Work Phone: [facility] Start: 12-05-2024 End: 12-05-2024 ambulatory LINDA ALDRIDGE Facility:[facility] Start: 12-05-2024 Encounter for gynecological examination (general) (routine) without abnormal findings LINDA ALDRIDGE [facility] Start: 07-14-2024 End: 07-14-2024 ambulatory ELIAS NORIEGA Facility:[facility] Start: 07-14-2024 End: 07-14-2024 Telemedicine consultation with patient Elvia East APRN.CNP Work Phone: Telemedicine Comment on above: Procedure, test, or exam not indicated (Primary Dx) Start: 08-16-2023 End: 08-16-2023 Patient encounter procedure Lu Camacho RN CLINICIAN.CNM Work Phone: OB/Gynecology Comment on above: Encounter for gyneco logical examination (general) (routine) without abnormal findings (Primary Dx); Screening for cervical cancer; Encounter for screening for human papillomavirus (HPV) Start: 08-16-2023 End: 08-16-2023 Patient encounter status Lu Camacho RN CLINICIAN.CNM Work Phone: [facility] Start: 05-18-2023 Refill Grace Moser MD Work Phone: OB/Gynecology Comment on above: Refill Request Start: 05-02-2022 End: 05-02-2022 Patient encounter procedure Grace Moser MD Work Phone: OB/Gynecology Comment on above: Encounter for gyneco logical examination (general) (routine) without abnormal findings (Primary Dx); Encounter for routine eye and vision examination; Need for HPV vaccine Start: 05-02-2022 End: 05-02-2022 Patient encounter status Grace Moser MD Work Phone: OB/Gynecology Start: 04-10-2022 Refill Steven panda MD Work Phone: Neurology Comment on above: Refill Request Start: 02-23-2022 End: 02-23-2022 Patient encounter procedure Grace Moser MD Work Phone: OB/Gynecology Comment on above: OPENED IN ERROR (Janneth tino Dx) Start: 01-23-2018 End: 01-23-2018 Patient encounter procedure Karthik Merchant Facility:[facility] Procedures Date Procedure Procedure Detail Performing Clinician Start: 03-27-2025 Follow-up visit Follow Up ABRAHAM BRITO Start: 02-06-2021 Adult depression screening assessment Grace Moser MD Work Phone: Plan of Treatment Date Care Activity Detail Author Start: 12-23-2030 Urine microalbumin profile [facility] Start: 12-08-2025 End: 12-08-2025 Patient encounter procedure 12/08/2025 2:00 PM EDT Office Visit OB/Gynecology [address] [place] [address] Linda Aldridge APRN.PROPERTY CUSTODIAN [address] [place] [address] Annual OB/Gynecology Comment on above: Annual Start: 12-05-2025 Screening for malign ant neoplasm of cervix Cervical Cancer Screening [facility] Start: 02-09-2025 Influenza vaccination [facility] Start: 08-15-2024 Screening for malign ant neoplasm of cervix Cervical Cancer Screening [facility] Start: 04-20-2024 PAP TESTING PAP TESTING [facility] Start: 04-20-2024 Screening for malign ant neoplasm of cervix Pap Testing [facility] Start: 02-10-2024 Covid-19 Vaccine ( season) Covid-19 Vaccine () [facility] Start: 02-10-2024 Influenza vaccination Influenza Vacc ine (#1) [facility] Start: 06-11-2023 Depression Assessment Depression Ass essment [facility] Start: 02-09-2023 Influenza vaccination Influenza Vacc ine (#1) [facility] Start: 08-30-2022 HPV VACCINE (3 - 3-d ose series) HPV VACCINE (3 - 3-dose series) [facility] Start: 06-11-2022 Depression Assessment Depression Ass essment [facility] Start: 02-09-2022 Influenza vaccination INFLUENZA (#1) [facility] Start: 02-06-2022 Adult depression screening assessment DEPRESSION SCREENING [facility] Start: 06-11-2021 DEPRESSION ASSESSMENT DEPRESSION ASS ESSMENT [facility] Start: 11-16-2017 HPV VACCINE (2 - 3-d ose series) HPV VACCINE (2 - 3-dose series) [facility] Start: 2014 Anxiety Screening Anxiety Screening [facility] Start: 2014 Depression Screening Depression Scre ening [facility] Start: 2010 PEDS TO ADULT TRANSITION ANNUAL ASSESSMENT PEDS TO ADULT TRANSITION ANNUAL ASSESSMENT [facility] Start: 2008 PEDS TO ADULT TRANSITION INITIAL DISCUSSION PEDS TO ADULT TRANSITION INITIAL DISCUSSION [facility] Start: 05-31-1997 COVID-19 VACCINE (#1) COVID-19 VACCI NE (#1) [facility] Start: 1996 HEPATITIS B (1 of 3 - 3-dose series) HEPATITIS B (1 of 3 - 3-dose series) [facility] Chlamydia trachomatis+Neisseria gonorrhoeae DNA [Presence] in Unspecified specimen by KANDACE with probe detection GONORRHEA/CHLAMYDIA NAAT Lab Routine Screen for STD (sexually transmitted disease) 12/05/2024 12:30 PM EDT [facility] PAP TEST PAP TEST Lab Rou andrea Encounter for gynecological examination (general) (routine) without abnormal findings Screening for cervical cancer Encounter for screening for human papillomavirus (HPV) 08/16/2023 3:24 PM EST [facility] Work Phone: PAP TEST PAP TEST Lab Rou andrea Encounter for gynecological examination (general) (routine) without abnormal findings Screening for cervical cancer 12/05/2024 12:30 PM EDT [facility] Work Phone: Immunizations Immunization Date Immunization Notes Care Provider [facility] 05-02-2022 Human Papillomavirus 9-valent vaccine Grace Moser MD Work Phone: [facility] 12-23-2020 tetanus toxoid, redu josé diphtheria toxoid, and acellular pertussis vaccine, adsorbed Grace Moser MD Work Phone: [facility] 11-22-2018 tetanus toxoid, redu josé diphtheria toxoid, and acellular pertussis vaccine, adsorbed Grcae Moser MD Work Phone: [facility] 10-19-2017 Human Papillomavirus 9-valent vaccine Grace Moser MD Work Phone: [facility] Work Phone: 05-13-2015 measles, mumps and rubella virus vaccine Linda Aldridge APRN.CNP Work Phone: [facility] 04-29-2015 tetanus toxoid, redu josé diphtheria toxoid, and acellular pertussis vaccine, adsorbed Grace Moser MD Work Phone: [facility] 02-03-2014 meningococcal polysaccharide (groups A, C, Y and W-135) diphtheria toxoid conjugate vaccine (MCV4P) Linda Aldridge APRN.PROPERTY CUSTODIAN Work Phone: [facility] 02-03-2014 tetanus toxoid, redu josé diphtheria toxoid, and acellular pertussis vaccine, adsorbed Linda Aldridge APRN.PROPERTY CUSTODIAN Work Phone: [facility] 08-19-2009 hepatitis A vaccine, unspecified formulation Linda Aldridge APRN.PROPERTY CUSTODIAN Work Phone: [facility] 08-19-2009 HPV, unspecified formulation Linda Aldridge APRN.PROPERTY CUSTODIAN Work Phone: [facility] 04-20-2009 novel Influenza-H1N1 -09, live virus for nasal administration Linda Aldridge APRN.PROPERTY CUSTODIAN Work Phone: [facility] 04-20-2009 influenza virus vacc ine, unspecified formulation Grace Moser MD Work Phone: [facility] 02-18-2009 hepatitis A vaccine, unspecified formulation Linda Aldridge APRN.PROPERTY CUSTODIAN Work Phone: [facility] 02-18-2009 HPV, unspecified formulation Linda Aldridge APRN.PROPERTY CUSTODIAN Work Phone: [facility] 12-17-2008 HPV, unspecified formulation Linda Aldridge APRN.PROPERTY CUSTODIAN Work Phone: [facility] 12-17-2008 meningococcal polysaccharide (groups A, C, Y and W-135) diphtheria toxoid conjugate vaccine (MCV4P) Linda Aldridge APRN.PROPERTY CUSTODIAN Work Phone: [facility] 03-03-2008 TD(adult) unspecifie d formulation Linda Aldridge APRN.PROPERTY CUSTODIAN Work Phone: [facility] 09-19-2001 diphtheria, tetanus toxoids and acellular pertussis vaccine, unspecified formulation Linda Aldridge APRN.PROPERTY CUSTODIAN Work Phone: [facility] 09-19-2001 measles, mumps and rubella virus vaccine Linda Aldridge RN CLINICIAN.PROPERTY CUSTODIAN Work Phone: [facility] 09-19-2001 poliovirus vaccine, inactivated Linda Aldridge RN CLINICIAN.PROPERTY CUSTODIAN Work Phone: [facility] 11-30-1997 haemophilus influenz ae type b vaccine, PRP-T conjugate Linda Aldridge RN CLINICIAN.PROPERTY CUSTODIAN Work Phone: [facility] 11-30-1997 measles, mumps and rubella virus vaccine Linda Aldridge RN CLINICIAN.PROPERTY CUSTODIAN Work Phone: [facility] 07-28-1997 diphtheria, tetanus toxoids and acellular pertussis vaccine, unspecified formulation Linda Aldridge RN CLINICIAN.PROPERTY CUSTODIAN Work Phone: [facility] 07-28-1997 haemophilus influenz ae type b vaccine, PRP-T conjugate Linda Aldridge RN CLINICIAN.PROPERTY CUSTODIAN Work Phone: [facility] 07-28-1997 hepatitis B vaccine, pediatric or pediatric/adolescent dosage Ilnda Aldridge RN CLINICIAN.PROPERTY CUSTODIAN Work Phone: [facility] 05-22-1997 diphtheria, tetanus toxoids and acellular pertussis vaccine, unspecified formulation Linda Aldridge RN CLINICIAN.PROPERTY CUSTODIAN Work Phone: [facility] 05-22-1997 haemophilus influenz ae type b vaccine, PRP-T conjugate Linda Aldridge RN CLINICIAN.PROPERTY CUSTODIAN Work Phone: [facility] 05-22-1997 poliovirus vaccine, inactivated Linda Aldridge RN CLINICIAN.PROPERTY CUSTODIAN Work Phone: [facility] 03-20-1997 haemophilus influenz ae type b vaccine, PRP-T conjugate Linda Aldridge RN CLINICIAN.PROPERTY CUSTODIAN Work Phone: [facility] 03-17-1997 diphtheria, tetanus toxoids and acellular pertussis vaccine, unspecified formulation Linda Aldridge RN CLINICIAN.PROPERTY CUSTODIAN Work Phone: [facility] 03-17-1997 poliovirus vaccine, inactivated Linda Aldridge RN CLINICIAN.PROPERTY CUSTODIAN Work Phone: [facility] 1996 hepatitis B vaccine, pediatric or pediatric/adolescent dosage Linda Aldridge RN CLINICIAN.PROPERTY CUSTODIAN Work Phone: [facility] 1996 hepatitis B vaccine, pediatric or pediatric/adolescent dosage Linda Aldridge APRN.JOSH Work Phone: [facility] Payers Date Payer Category Payer Self-pay 2023 Medicaid [id number] 2018 Medicaid [id number] 2018 Unknown 1996 Unknown [id number] 1996 Unknown [id number] 1959 Unknown [id number] Unknown [id number] Social History Date Type Detail Facility Start: 08-10-2020 End: 12-05-2024 Tobacco smoking status NHIS Ex-smoker [facility] History of tobacco use Current smoker [facility] History of tobacco use Cigarette Smoker [facility] Start: 08-10-2020 End: 12-05-2024 Tobacco use and exposure Smokeless tobacco non-user [facility] Start: 04-20-2021 End: 12-05-2024 Alcohol intake Current non-drinker of alcohol (finding) [facility] Start: 04-02-2019 End: 05-02-2022 Tobacco Comment 2 a day [facility] Start: 1996 Sex Assigned At Not on file [facility] Start: 02-13-2022 End: 02-23-2022 Exposure to SARS-CoV-2 (event) Not sure [facility] Work Phone: Start: 05-02-2022 End: 12-05-2024 History of Social function [facility] Start: 05-02-2022 End: 12-05-2024 Tobacco use panel [facility] Start: 05-12-2012 Adult Depression Screening Assessment 0 [facility] History of tobacco use Passive smoker [facility] Functional Status Date Assessment Result Facility 07-21-2014 Are you deaf, or do you have serious difficulty hearing No 07/21/2014 1:00 PM Suha Roca [facility] 07-21-2014 Are you blind, or do you have serious difficulty seeing, even when wearing glasses No 07/21/2014 1:00 PM Suha Roca [facility] 07-21-2014 Do you have serious difficulty walking or climbing stairs No 07/21/2014 1:00 PM Suha Roca [facility] 07-21-2014 Do you have difficul ty dressing or bathing No 07/21/2014 1:00 PM Suha Roca [facility] 07-21-2014 Because of a physica l, mental, or emotional condition, do you have difficulty doing errands alone such as visiting a physician's office or shopping No 07/21/2014 1:00 PM Suha Roca [facility] Mental Status Date Assessment Result Facility 07-21-2014 Because of a physica l, mental, or emotional condition, do you have serious difficulty concentrating, remembering, or making decisions No 07/21/2014 1:00 PM Suha Roca [facility] Clinical Notes 07-04-2018 to 03-27-2025 Linda Aldridge APRN.[facility] - 12/05/2024 10:56 AM Elvia Rehman APRN.PROPERTY CUSTODIAN - 07/14/2024 7:30 PM Lu Bullock APRN.CN - 08/16/2023 2:58 PM Veronica Hdez Tx - 02/23/2022 11:32 AM EDT Note Date & Type Note Facility 03-27-2025 Note PROCEDURE: ULTRASOUN D TRANSVAGINAL OB, 03/27/2025 2:04 PM EDT. INDICATIONS: Irregular menstruation, abdominal pain. Spontaneous one week earlier, Cytotec administration 03/22 and 03/24. Passing clots. Prior section 4 para 3 AB 1 Approximately 7 week COMPARISON: None TECHNIQUE: Transvaginal pelvic sonogram, grayscale color and spectral assessment. FINDINGS: Uterus: 10.6 x 4.6 x 4.9 cm. Uterus is retroverted retroflexed. A single intrauterine is identified. There is heterogeneous decidual reaction. Misshapen gestational sac is identified in the lower uterine segment/cervical level with internal septation. There is angular margins and irregular margination. Embryonic pole is seen. No cardiac activity could be documented by sonographic surveillance, M mode Doppler interrogation or color assessment. Mean gestational sac size: 2.20 cm Embryonic crown-rump length: 1.20 cm Sonographic gestational age: 7 weeks 3 days +/- 5 days Sonographic MUNA 11/28/2025 Perigestational hemorrhage is noted above and below the gestational sac. Maternal right ovary: 2.6 x 0.9 x 1.8 cm. Volume 2 mL. Subcentimeter follicle seen, normal sonographic morphology. Maternal left ovary: 2.5 x 1.2 x 1.6 cm. 1.2 x 1.0 x 1.3 cm corpus luteum of favored. Volume 3 mL. Free fluid in the cul-de-sac noted. IMPRESSION: 1. Failed first trimester intrauterine , incomplete spontaneous . Misshapen complex gestational sac is noted in the lower uterine segment/cervix level. Embryonic pole without cardiac activity. Embryo consistent with 7 week 3 day gestation +/- 5 days. This meets criteria for nonviable failed first trimester . 2. Heterogeneous decidual reaction with small areas of perigestational hemorrhage above the level of the gestational sac 3. Normal maternal right ovarian sonographic morphology 4. 1.3 cm maternal left ovarian corpus luteum of 4. Mild pelvic free fluid in the cul-de-sac. [facility] 03-27-2025 Note HNO ID: [id number] Author: ABRAHAM BRITO MD Service: ? Author Type: Physician Type: Progress Notes Filed: 03/27/2025 13:19 Note Text: Obstetrics and Gynecology [place] DIETIST Visit Subjective Recording using [employer] software for draft documentation of the visit was discussed with the patient/authorized treasury representative; all questions welcomed and answered. Patient/authorized treasury representative agreed to proceed CHIEF COMPLAINT: The patient is a 29-year-old female, presenting for evaluation of retained products of conception and ongoing vaginal bleeding following medical management of an incomplete . Accompanied by her father. HPI: The patient is a 29-year-old female presenting for evaluation of persistent pain and bleeding following the administration of Cytotec for a miscarriage. Miscarriage Management - Patient has received two doses of Cytotec for miscarriage management. - After the first dose, she passed clots but did not experience significant pain. - After the second dose, she experienced heavy bleeding and severe pain, describing the pain as so intense that she was shaking and almost went to the hospital. - Currently, the bleeding has slowed, but she continues to experience significant pain. - She has been trying to wait it out in hopes that the pain and bleeding will subside once everything passes. - She has undergone several vaginal ultrasounds recently. Social History - Patient has a 4-year-old son. HISTORY: OB History Gravida4 Para3 Term3 Preterm0 AB0 Living3 SAB0 IAB0 Ectopic0 Multiple0 Live Births3 [employer] Combination History LMP: 01/05/2025, Age at Menarche: 13 Age at First : 18 Age at Menopause: [employer] Combination History Comments: Sexual Activity: Yes; Male Contraception: No contraception data on record Menstrual Tracking History Flowsheet Row Office Visit from 12/05/2024 in OB/Gynecology Period Cycle (Days) 29 Period Duration (Days) 5 Menstrual Flow Light PAST MEDICAL HISTORY Diagnosis Date Anemia Anxiety Depression fracture age 11 right arm fracture ulna and radius History of depression After 2019 Hypertension POTS Papanicolaou smear of cervix with low grade squamous intraepithelial lesion (LGSIL) 07/15/2018 POTS (postural orthostatic tachycardia syndrome) PAST SURGICAL HISTORY Procedure Laterality Date ANESTH, SECTION DELIVERY ONLY 05/11/15, 02/13/2019, 03/10/21 , low transverse TONSILLECTOMY HX 2010 FAMILY HISTORY Problem Relation Age of Onset Thyroid Mother No Known Problems Father ADD/ADHD Sister Asthma Brother No Known Problems Brother Diabetes Maternal Grandmother No Known Problems Maternal Grandfather Diabetes Paternal Grandmother Diabetes Paternal Grandfather No Known Problems Daughter SOCIAL HISTORY[1] Current Outpatient Medications Medication Sig ondansetron orally disintegrating (ZOFRAN ODT) 4 mg disintegrating tablet Take 1 tablet by mouth every 8 hours as needed for nausea/vomiting. aspirin, enteric coated (ECOTRIN LOW STRENGTH) 81 mg EC tablet Take 1 tablet by mouth once daily. (Patient not taking: Reported on 03/24/2025) PNV24/iron cbn,gluc/FA/dss/dha (PRENATE ORAL) Take 1 tablet by mouth once daily. (Patient not taking: Reported on 03/24/2025) No current facility-administered medications for this visit. ALLERGIES Allergen Reactions Codeine Intolerance adverse reaction Hydrocodone GI Upset pain in abdomen Ultram [Tramadol] Mental Status Change REVIEW OF SYSTEMS: Genitourinary: (+) vaginal bleeding, (+) pelvic pain Objective SENSITIVE EXAM: The sensitive examination was discussed with the Patient or Patient's Authorized Web Communications Specialist. As applicable, any other physician, advance practice provider, medical student, or other health professional student that will be observing or involved in the sensitive examination for educational or training purposes was discussed with the Patient or Authorized Web Communications Specialist. The Patient or Authorized Web Communications Specialist has agreed to proceed with the sensitive examination. (Sensitive examination includes inspection and/or palpation of the breasts, pelvis, prostate and anorectal regions). PHYSICAL EXAM: BP 108/72 Wt 102 lb (46.3kg) LMP 01/05/2025 GENERAL: Pleasant; in no apparent distress - PELVIC: external genitalia teri Bedside TVUS shows GS with pole, no FCA Assessment AND Plan ASSESSMENT AND PLAN: 1. Missed (HCC) (O02.1) - Persistent gestational sac and pole on ultrasound following two doses of Cytotec; medical management unsuccessful. - Discussed surgical management with [facility]C scheduled for , April [address] Carter. - Reviewed risks of [facility] (bleeding, infection, uterine or intra-abdominal organ injury) and alternative of a third Cytotec dose, which patient declined. - Provided preoperative instructions: NPO after midnight prior (more content not included)... [facility] 03-24-2025 Note HNO ID: [id number] Author: ABRAHAM BRITO MD Service: ? Author Type: Physician Type: Progress Notes Filed: 03/24/2025 14:07 Note Text: Hull Inspector offered: Patient declines. Obstetrics and Gynecology [place] DIETIST Visit Subjective Recording using [employer] software for draft documentation of the visit was discussed with the patient/authorized treasury representative; all questions welcomed and answered. Patient/authorized treasury representative agreed to proceed CHIEF COMPLAINT: The patient is a 29-year-old female presenting for evaluation of retained products of conception after medical . HPI: The patient is a 29-year-old female presenting for follow-up after taking medication to induce bleeding. Bleeding and Pain - Took medication on Sunday night around 9 PM to induce bleeding. - Began experiencing bleeding on Sunday morning, which continued throughout the day. - Passed a couple of clots described as the size of a small cutie orange. - Bleeding slowed down on Sunday and is now described as spotting. - Reports pain as the worst part of the experience, exacerbated by not being able to rest due to responsibilities with other children. HISTORY: OB History Gravida4 Para3 Term3 Preterm0 AB0 Living3 SAB0 IAB0 Ectopic0 Multiple0 Live Births3 [employer] Combination History LMP: 01/05/2025, Age at Menarche: 13 Age at First : 18 Age at Menopause: [employer] Combination History Comments: Sexual Activity: Yes; Male Contraception: No contraception data on record Menstrual Tracking History Flowsheet Row Office Visit from 12/05/2024 in OB/Gynecology Period Cycle (Days) 29 Period Duration (Days) 5 Menstrual Flow Light PAST MEDICAL HISTORY Diagnosis Date Anemia Anxiety Depression fracture age 11 right arm fracture ulna and radius History of depression After 2019 Hypertension POTS Papanicolaou smear of cervix with low grade squamous intraepithelial lesion (LGSIL) 07/15/2018 POTS (postural orthostatic tachycardia syndrome) PAST SURGICAL HISTORY Procedure Laterality Date ANESTH, SECTION DELIVERY ONLY 05/11/15, 02/13/2019, 03/10/21 , low transverse TONSILLECTOMY HX 2010 FAMILY HISTORY Problem Relation Age of Onset Thyroid Mother No Known Problems Father ADD/ADHD Sister Asthma Brother No Known Problems Brother Diabetes Maternal Grandmother No Known Problems Maternal Grandfather Diabetes Paternal Grandmother Diabetes Paternal Grandfather No Known Problems Daughter SOCIAL HISTORY[1] Current Outpatient Medications Medication Sig ondansetron orally disintegrating (ZOFRAN ODT) 4 mg disintegrating tablet Take 1 tablet by mouth every 8 hours as needed for nausea/vomiting. aspirin, enteric coated (ECOTRIN LOW STRENGTH) 81 mg EC tablet Take 1 tablet by mouth once daily. (Patient not taking: Reported on 03/24/2025) PNV24/iron cbn,gluc/FA/dss/dha (PRENATE ORAL) Take 1 tablet by mouth once daily. (Patient not taking: Reported on 03/24/2025) No current facility-administered medications for this visit. ALLERGIES Allergen Reactions Codeine Intolerance adverse reaction Hydrocodone GI Upset pain in abdomen Ultram [Tramadol] Mental Status Change REVIEW OF SYSTEMS: Constitutional: (+) pain Genitourinary: (+) vaginal bleeding, (+) passage of clots Objective SENSITIVE EXAM: The sensitive examination was discussed with the Patient or Patient's Authorized Web Communications Specialist. As applicable, any other physician, advance practice provider, medical student, or other health professional student that will be observing or involved in the sensitive examination for educational or training purposes was discussed with the Patient or Authorized Web Communications Specialist. The Patient or Authorized Web Communications Specialist has agreed to proceed with the sensitive examination. (Sensitive examination includes inspection and/or palpation of the breasts, pelvis, prostate and anorectal regions). PHYSICAL EXAM: BP 100/62 Wt 100 lb 9.6 oz (45.6kg) LMP 01/05/2025 GENERAL: Pleasant; in no apparent distress - PELVIC: external genitalia normal - Patient consent for exam received Bedside TVUS: - GS with pole present (NO FCA) Assessment AND Plan ASSESSMENT AND PLAN: 1. Incomplete spontaneous (HCC) (O03.4) - Persistent retained products of conception on ultrasound following initial medical management. - Administer second dose of medication: 4 tablets vaginally. - Discussed potential need for a third dose or surgical intervention if tissue does not pass with this dose; patient expressed understanding and agreement with plan. - Advised patient to update after taking the second dose; will determine next steps based on response. Medical Decision Making: Problems: Low: Stable chronic illness Risk: Moderate: Drug management Medical Decision Making Level: 3 - Low Abraham Brito MD [1] Social History Tobacco Use Smoking (more content not included)... [facility] 03-19-2025 Note HNO ID: [id number] Author: ANA MARIA MALAVE MD Service: ? Author Type: Physician Type: Progress Notes Filed: 03/19/2025 16:35 Note Text: The patient presents for requested ultrasound. Full report available in the Imaging tab in Epic. Ana Maria Malave MD [facility] 03-19-2025 Note HNO ID: [id number] Author: ABRAHAM BRITO MD Service: ? Author Type: Physician Type: Progress Notes Filed: 03/19/2025 11:52 Note Text: Obstetrics and Gynecology [place] DIETIST Visit Subjective Recording using [employer] software for draft documentation of the visit was discussed with the patient/authorized treasury representative; all questions welcomed and answered. Patient/authorized treasury representative agreed to proceed CHIEF COMPLAINT: The patient is a 29-year-old female presenting for medical management of a missed at approximately 7-8 weeks? gestation. HPI: The patient is a 29-year-old female presenting for evaluation following a miscarriage. Miscarriage - Patient was informed last week that there were abnormalities in the . - Today, an ultrasound revealed no heartbeat; previous ultrasound had detected a faint heartbeat. - Patient is measuring between 7-8 weeks gestation. - Reports mild cramping, but no significant pain or bleeding. HISTORY: OB History Gravida4 Para3 Term3 Preterm0 AB0 Living3 SAB0 IAB0 Ectopic0 Multiple0 Live Births3 [employer] Combination History LMP: 01/05/2025, Age at Menarche: 13 Age at First : 18 Age at Menopause: [employer] Combination History Comments: Sexual Activity: Yes; Male Contraception: No contraception data on record Menstrual Tracking History Flowsheet Row Office Visit from 12/05/2024 in OB/Gynecology Period Cycle (Days) 29 Period Duration (Days) 5 Menstrual Flow Light PAST MEDICAL HISTORY Diagnosis Date Anemia Anxiety Depression fracture age 11 right arm fracture ulna and radius History of depression After 2019 Hypertension POTS Papanicolaou smear of cervix with low grade squamous intraepithelial lesion (LGSIL) 07/15/2018 POTS (postural orthostatic tachycardia syndrome) PAST SURGICAL HISTORY Procedure Laterality Date ANESTH, SECTION DELIVERY ONLY 05/11/15, 02/13/2019, 03/10/21 , low transverse TONSILLECTOMY HX 2010 FAMILY HISTORY Problem Relation Age of Onset Thyroid Mother No Known Problems Father ADD/ADHD Sister Asthma Brother No Known Problems Brother Diabetes Maternal Grandmother No Known Problems Maternal Grandfather Diabetes Paternal Grandmother Diabetes Paternal Grandfather No Known Problems Daughter SOCIAL HISTORY[1] Current Outpatient Medications Medication Sig ondansetron orally disintegrating (ZOFRAN ODT) 4 mg disintegrating tablet Take 1 tablet by mouth every 8 hours as needed for nausea/vomiting. PNV24/iron cbn,gluc/FA/dss/dha (PRENATE ORAL) Take 1 tablet by mouth once daily. miSOPROStol (CYTOTEC) 200 mcg tablet Use 4 tablets vaginally one time only for 1 dose. aspirin, enteric coated (ECOTRIN LOW STRENGTH) 81 mg EC tablet Take 1 tablet by mouth once daily. No current facility-administered medications for this visit. ALLERGIES Allergen Reactions Codeine Intolerance adverse reaction Hydrocodone GI Upset pain in abdomen Ultram [Tramadol] Mental Status Change REVIEW OF SYSTEMS: Genitourinary: (+) cramping Objective SENSITIVE EXAM: Sensitive exam not performed. PHYSICAL EXAM: BP 98/58 Wt 100 lb (45.4kg) LMP 01/05/2025 GENERAL: Pleasant; no acute distress Assessment AND Plan ASSESSMENT AND PLAN: 1. Missed (HCC) (O02.1) - Ultrasound today showed no heartbeat; prior ultrasound showed a heartbeat; gestational age measured between 7-8 weeks. - Discussed management options: expectant management, medical management with Cytotec, and surgical management (IPAS in-office or surgery at [facility]). - Patient elected medical management with Cytotec. - Start Cytotec, 4 tablets vaginally; instructed to insert tablets vaginally and remain lying down for 30 minutes. - Advised that bleeding similar to a heavy menstrual cycle is expected, typically lasting 2-4 weeks, but may persist up to 4-6 weeks. - Advised to contact the office on Sunday after taking medication to determine if a second dose is needed or to schedule follow-up. - Follow-up in 1-2 weeks. - Advised to seek emergency care for heavy bleeding (soaking a pad an hour for 2 hours in a row) or severe pain. - Provided education on the most likely cause of early loss being chromosomal abnormalities, and that nothing the patient did caused or could have prevented the miscarriage. Medical Decision Making: Problems: Moderate: New problem with uncertain prognosis Data: Unique test result(s) reviewed: 1 Risk: Moderate: Drug management Medical Decision Making Level: 4 - Moderate Abraham Brito MD [1] Social History Tobacco Use Smoking status: Former Current packs/day: 0.00 Types: Cigarettes Quit date: 06/11/2024 Years since quittin.7 Passive exposure: Current Smokeless tobacco: Never Tobacco comments: 2 a day Vaping Use Vaping status: Never Used Substance Use Topics Alc (more content not included)... [facility] 03-09-2025 Note HNO ID: [id number] Author: CARMELLA JAMES LPN Service: ? Author Type: Licensed Nurse Type: Progress Notes Filed: 03/12/2025 10:33 Note Text: OB point of care ultrasound was performed. See imaging tab for details. Carmella James LPN [facility] 03-06-2025 Note HNO ID: [id number] Author: ELISHA JONES APRN.CNM Service: ? Author Type: Finishing Lab Technician Type: Progress Notes Filed: 03/12/2025 10:33 Note Text: Hull Inspector offered: Patient declines. INITIAL OB ASSESSMENT HPI: Ruthann is a 29 year old White Female here to establish Obstetrical Care. Patient's last menstrual period was 01/05/2025. from OB Dating Form. was planned Complaints: (!) Severe nausea/vomiting OB History Gravida4 Para3 Term3 Preterm0 AB0 Living3 SAB0 IAB0 Ectopic0 Multiple0 Live Births3 Previous history: Prior : Yes History of 4th degree laceration: No History of shoulder dystocia: No History of Hypertensive disorders including pre-eclampsia or gestational hypertension: No History of gestational diabetes: No Patient's Risk Screening for delivery: Have you had a prior bhatia between 20w and 36w6d? No How many pregnancies have you had before? 3 Did you have a previous baby with a GBS Infection? No Please select all that apply for any prior : N/A MEDICAL/PSYCHOSOCIAL HISTORY: History of hemorrhage or bleeding concerns: No Thyroid Disease: No History of chronic hypertension: No History of pre-existing diabetes: No ABO/RH(D) Date Value Ref Range Status 09/10/2020 A POSITIVE Final BMI 17.58 kg/(m2) Last Pap: 12/10/2024 History of abnormal pap: Yes Prior treatment for cervical dysplasia: Colposcopy . Last HPV: 08/31/2023 History of STDs: N/A Partner History of STDs: None Did you have a partner with Herpes? No Tobacco use: No E-Cigarette/Vaping Use: No Caffeine use: Yes Drug use: No Alcohol use: No Multivitamin with Folic acid: Yes Would refuse blood transfusion if medically necessary: No Social Needs: How often does this describe you? I don't have enough money to pay my bills: Never Within the past 12 months, have you worried that your food would run out before you had money to buy more? Never In the past 12 months, has lack of reliable transportation kept you from going to medical appointments or work, or from getting things needed for daily living? Never In the past 12 months, have you had any concerns about having a place to live, or about the condition or quality of your housing? Never Would you like more information on any of the following (please check all that apply)? Not interested Social History: Do you have any history of depression, anxiety, PTSD, or other mood problems? Yes Do you have a history of abuse or trauma that may impact your experience? No Are you currently employed? Yes Depression/Anxiety Screening: denies, admits to symptoms of depression. OB Depression and Anxiety Screening- This Encounter Feeling down, depressed, or hopeless: Not at all Little interest or pleasure in doing things: Not at all Feeling nervous, anxious, or on edge Not at all Not being able to stop or control worrying Not at all Anxiety Pre-Screening Total (If >/= 3 additional questions will be reviewed) 0 Genetic Screening: Partner present: No Patient verbalized knowledge of partner family health history: Yes Do you or your partner have any personal or family history of defects not previously discussed: No Do you have history of a complicated by anomaly, genetic condition, or demise: No Preeclampsia Risk Screening: Screening for prevention of preeclampsia: High risk factors: None Moderate risk ractors: None OB Risk Screening: Completed, no positive findings documented. Marital Status: Partner: Name: Cong Age: 29 Occupation: Construction Gender: Male PAST MEDICAL HISTORY Diagnosis Date Anemia Anxiety Depression fracture age 11 right arm fracture ulna and radius History of depression After 2019 Hypertension POTS Papanicolaou smear of cervix with low grade squamous intraepithelial lesion (LGSIL) 07/15/2018 POTS (postural orthostatic tachycardia syndrome) PAST SURGICAL HISTORY Procedure Laterality Date ANESTH, SECTION DELIVERY ONLY 05/11/15, 02/13/2019, 03/10/21 , low transverse TONSILLECTOMY HX 2010 Current Outpatient Medications Medication Sig Dispense Refill PNV24/iron cbn,gluc/FA/dss/dha (PRENATE ORAL) Take 1 tablet by mouth once daily. aspirin, enteric coated (ECOTRIN LOW STRENGTH) 81 mg EC tablet Take 1 tablet by mouth once daily. 90 tablet 3 ondansetron orally disintegrating (ZOFRAN ODT) 4 mg disintegrating tablet Take 1 tablet by mouth every 8 hours as needed for nausea/vomiting. 30 tablet 0 Levonorgestrel-Ethinyl Estrad (AVIANE) 0.1mg - 20mcg per tablet Take 1 tablet by mouth once daily. FOR CONTINUOUS USE. Take active pill continuously x 3 mo (discard placebo pill) (Patient not taking: Reported on 03/06/2025) 112 tablet 5 No current facility-administered medications for this visit. Allergies As of Date: (more content not included)... [facility] 12-05-2024 History of Presen t illness Narrative Hull Inspector offered: Patient declines. Ruthann is a 29 year old who presents for an annual gynecologic exam without complaints. Still get period: Yes LMP: 11/14/2024 Menses:menses every 28-30 days lasting 3-5 days Bleeding amount bothersome: No Bleeding between periods: No Period symptoms: Breast tenderness; Cramps; Mood change Contraception: condoms HPV vaccine: Yes control frequency: Always Last pap smear: 08/16/2023 ASCUS HPV:negative History of abnormal pap: Yes, history of abnormal PAP smears 07/04/2018 Pap LSIL 04/02/2019 Pap ASC-H HPV other high risk positive 08/25/2019 colposcopy benign 04/30/2020 and 04/30/2021 - normal Paps 08/16/2023 ASCUS HPV negative Time with current partner: 7 years plus Patient concern for STD exposure:no Number of lifetime partners: 4 Bothersome pelvic pain: No Last mammogram: never OB History Gravida3 Para3 Term3 Preterm0 AB0 Living3 SAB0 IAB0 Ectopic0 Multiple0 Live Births3 [employer] Combination History LMP: 11/14/2024, Unknown Age at Menarche: 13 Age at First : Age at Menopause: [employer] Combination History Comments: Sexual Activity: Yes; Male Contraception: Pill Menstrual Tracking History Flowsheet Row Office Visit from 12/05/2024 in OB/Gynecology Period Cycle (Days) 29 Period Duration (Days) 5 Menstrual Flow Light PAST MEDICAL HISTORY Diagnosis Date Anemia Anxiety Depression fracture age 11 right arm fracture ulna and radius Hypertension POTS Papanicolaou smear of cervix with low grade squamous intraepithelial lesion (LGSIL) 07/15/2018 PAST SURGICAL HISTORY Procedure Laterality Date ANESTH, SECTION DELIVERY ONLY 05/11/15, 02/13/2019, 03/10/21 , low transverse TONSILLECTOMY HX 2010 FAMILY HISTORY Problem Relation Age of Onset Thyroid Mother No Known Problems Father ADD/ADHD Sister Asthma Brother No Known Problems Brother Diabetes Maternal Grandmother No Known Problems Maternal Grandfather Diabetes Paternal Grandmother Diabetes Paternal Grandfather No Known Problems Daughter SOCIAL HISTORY Social History Tobacco Use Smoking status: Former Types: Cigarettes Passive exposure: Current Smokeless tobacco: Never Tobacco comments: 2 a day Vaping Use Vaping status: Never Used Substance Use Topics Alcohol use: No Drug use: No Comment: quit weed 1 year ago REVIEW OF SYSTEMS Abdomen: No abdominal pain, nausea, vomiting, diarrhea, or constipation. No bloating, early satiety, indigestion, or increased flatulence. Bladder: No dysuria, gross hematuria, urinary frequency, urinary urgency, or incontinence. Breast: No breast lumps, nipple d/c, overlying skin changes, redness or skin retraction. Allergies and current medication updated:Yes SENSITIVE EXAM: The sensitive examination was discussed with the Patient or Patient's Authorized Web Communications Specialist. As applicable, any other physician, advance practice provider, medical student, or other health professional student that will be observing or involved in the sensitive examination for educational or training purposes was discussed with the Patient or Authorized Web Communications Specialist. The Patient or Authorized Web Communications Specialist has agreed to proceed with the sensitive examination. (Sensitive examination includes inspection and/or palpation of the breasts, pelvis, prostate and anorectal regions). EXAM: BP 106/62 Ht 5' 3 (1.60m) Wt 100 lb (45.4kg) LMP 11/14/2024 BMI 17.72 kg/(m^2). GENERAL: pleasant, female in no apparent distress HEENT: Normocephalic, atraumatic, mucus membranes moist, and no lesions NECK: Supple, full range of motion, no adenopathy, and thyroid normal DERMATOLOGY: Normal, without lesions, non-icteric, and non-hirsute BREAST: soft, non-tender, symmetric, no dominant mass, normal nipple-areolar complex, no lymphadenopathy, and no nipple discharge CHEST: Normal inspiratory effort ABDOMEN: soft, non-tender, and no masses PELVIC: external genitalia normal, normal Bartholin's glands, urethra, [place]'s glands, no vulvar lesions, no cervical lesions, good vaginal support, physiologic discharge present, normal appearing perineal body and perianal region BIMANUAL: uterus normal size, shape and consistency, no adnexal masses, and non-tender RECTOVAGINAL: deferred. NEURO: alert and oriented x3,exam grossly non-focal EXTREMITIES: normal ASSESSMENT/PLAN: 1) Health maintenance: Pap done with reflex HPV. Nutrition, exercise and routine health maintenance exams reviewed. HPV vaccine: completed series 2) Contraception: combined hormonal contraceptives. Contraceptive options reviewed and information provided. 3) STD screening: Accepted STD check for Gonorrhea and Chlamydia. 4) Follow up one year or sooner as needed Linda Aldridge APRN.CNP documented in this encounter [facility] 12-05-2024 Note HNO ID: [id number] Author: LINDA ALDRIDGE APRN.CNP Service: ? Author Type: Nurse Practitioner Type: Progress Notes Filed: 12/05/2024 12:08 Note Text: Hull Inspector offered: Patient declines. Ruthann is a 29 year old who presents for an annual gynecologic exam without complaints. Still get period: Yes LMP: 11/14/2024 Menses:menses every 28-30 days lasting 3-5 days Bleeding amount bothersome: No Bleeding between periods: No Period symptoms: Breast tenderness; Cramps; Mood change Contraception: condoms HPV vaccine: Yes control frequency: Always Last pap smear: 08/16/2023 ASCUS HPV:negative History of abnormal pap: Yes, history of abnormal PAP smears 07/04/2018 Pap LSIL 04/02/2019 Pap ASC-H HPV other high risk positive 08/25/2019 colposcopy benign 04/30/2020 and 04/30/2021 - normal Paps 08/16/2023 ASCUS HPV negative Time with current partner: 7 years plus Patient concern for STD exposure:no Number of lifetime partners: 4 Bothersome pelvic pain: No Last mammogram: never OB History Gravida3 Para3 Term3 Preterm0 AB0 Living3 SAB0 IAB0 Ectopic0 Multiple0 Live Births3 [employer] Combination History LMP: 11/14/2024, Unknown Age at Menarche: 13 Age at First : Age at Menopause: [employer] Combination History Comments: Sexual Activity: Yes; Male Contraception: Pill Menstrual Tracking History Flowsheet Row Office Visit from 12/05/2024 in OB/Gynecology Period Cycle (Days) 29 Period Duration (Days) 5 Menstrual Flow Light PAST MEDICAL HISTORY Diagnosis Date Anemia Anxiety Depression fracture age 11 right arm fracture ulna and radius Hypertension POTS Papanicolaou smear of cervix with low grade squamous intraepithelial lesion (LGSIL) 07/15/2018 PAST SURGICAL HISTORY Procedure Laterality Date ANESTH, SECTION DELIVERY ONLY 05/11/15, 02/13/2019, 03/10/21 , low transverse TONSILLECTOMY HX 2010 FAMILY HISTORY Problem Relation Age of Onset Thyroid Mother No Known Problems Father ADD/ADHD Sister Asthma Brother No Known Problems Brother Diabetes Maternal Grandmother No Known Problems Maternal Grandfather Diabetes Paternal Grandmother Diabetes Paternal Grandfather No Known Problems Daughter SOCIAL HISTORY Social History Tobacco Use Smoking status: Former Types: Cigarettes Passive exposure: Current Smokeless tobacco: Never Tobacco comments: 2 a day Vaping Use Vaping status: Never Used Substance Use Topics Alcohol use: No Drug use: No Comment: quit weed 1 year ago REVIEW OF SYSTEMS Abdomen: No abdominal pain, nausea, vomiting, diarrhea, or constipation. No bloating, early satiety, indigestion, or increased flatulence. Bladder: No dysuria, gross hematuria, urinary frequency, urinary urgency, or incontinence. Breast: No breast lumps, nipple d/c, overlying skin changes, redness or skin retraction. Allergies and current medication updated:Yes SENSITIVE EXAM: The sensitive examination was discussed with the Patient or Patient's Authorized Web Communications Specialist. As applicable, any other physician, advance practice provider, medical student, or other health professional student that will be observing or involved in the sensitive examination for educational or training purposes was discussed with the Patient or Authorized Web Communications Specialist. The Patient or Authorized Web Communications Specialist has agreed to proceed with the sensitive examination. (Sensitive examination includes inspection and/or palpation of the breasts, pelvis, prostate and anorectal regions). EXAM: BP 106/62 Ht 5' 3 (1.60m) Wt 100 lb (45.4kg) LMP 11/14/2024 BMI 17.72 kg/(m2). GENERAL: pleasant, female in no apparent distress HEENT: Normocephalic, atraumatic, mucus membranes moist, and no lesions NECK: Supple, full range of motion, no adenopathy, and thyroid normal DERMATOLOGY: Normal, without lesions, non-icteric, and non-hirsute BREAST: soft, non-tender, symmetric, no dominant mass, normal nipple-areolar complex, no lymphadenopathy, and no nipple discharge CHEST: Normal inspiratory effort ABDOMEN: soft, non-tender, and no masses PELVIC: external genitalia normal, normal Bartholin's glands, urethra, [place]'s glands, no vulvar lesions, no cervical lesions, good vaginal support, physiologic discharge present, normal appearing perineal body and perianal region BIMANUAL: uterus normal size, shape and consistency, no adnexal masses, and non-tender RECTOVAGINAL: deferred. NEURO: alert and oriented x3,exam grossly non-focal EXTREMITIES: normal ASSESSMENT/PLAN: 1) Health maintenance: Pap done with reflex HPV. Nutrition, exercise and routine health maintenance exams reviewed. HPV vaccine: completed series 2) Contraception: combined hormonal contraceptives. Contraceptive options reviewed and information provided. 3) STD screening: Accepted STD check for Gonorrhea and Chlamydia. 4) Follow up one year or sooner as needed JESSICA Mondragon (more content not included)... [facility] 07-14-2024 Note HNO ID: [id number] Author: ELVIA EAST APRN.JOSH Service: ? Author Type: Nurse Practitioner Type: Progress Notes Filed: 07/14/2024 19:32 Note Text: cancelled [facility] 07-14-2024 History of Presen t illness Narrative cancelled documented in this encounter [facility] 08-16-2023 History of Presen t illness Narrative Hull Inspector offered: Patient declines. Ruthann is a 27 year old who presents for an annual gynecologic exam without complaints. Menses: no menses - continuous OCPs. Contraception: combined hormonal contraceptives HPV vaccine: Yes Last Pap: 05/02/2021 normal HPV: 04/07/2019 negative History of abnormal pap: Yes- hx of colposcopy 2020 Last mammogram: never Sexually active: Yes History of STDS: None Pain with intercourse: No Postcoital bleeding: No Hot flashes: No Night sweats: No OB History T3 L3 SAB0 IAB0 Ectopic0 Multiple0 Live Births3 [employer] Combination History LMP: 08/09/2023, Unknown Age at Menarche: Age at First : Age at Menopause: [employer] Combination History Comments: Sexual Activity: Yes; Male Contraception: Pill PAST MEDICAL HISTORY Diagnosis Date Anemia Anxiety Depression fracture age 11 right arm fracture ulna and radius Hypertension POTS Papanicolaou smear of cervix with low grade squamous intraepithelial lesion (LGSIL) 07/15/2018 PAST SURGICAL HISTORY Procedure Laterality Date ANESTH, SECTION DELIVERY ONLY 05/11/15, 02/13/2019, 03/10/21 , low transverse TONSILLECTOMY HX 2010 FAMILY HISTORY Problem Relation Age of Onset Thyroid Mother No Known Problems Father ADD/ADHD Sister Asthma Brother No Known Problems Brother Diabetes Maternal Grandmother No Known Problems Maternal Grandfather Diabetes Paternal Grandmother Diabetes Paternal Grandfather No Known Problems Daughter SOCIAL HISTORY Social History Tobacco Use Smoking status: Former Years: 2 Types: Cigarettes Passive exposure: Current Smokeless tobacco: Never Tobacco comments: 2 a day Vaping Use Vaping Use: Never used Substance Use Topics Alcohol use: No Drug use: No Comment: quit weed 1 year ago REVIEW OF SYSTEMS Abdomen: No abdominal pain, nausea, vomiting, diarrhea, or constipation. No bloating, early satiety, indigestion, or increased flatulence. Bladder: No dysuria, gross hematuria, urinary frequency, urinary urgency, or incontinence. Breast: No breast lumps, nipple d/c, overlying skin changes, redness or skin retraction. Allergies and current medication updated:Yes EXAM: Ht 5' 1.75 (1.57m) Wt 112 lb 11.2 oz (51.1kg) LMP 08/09/2023 BMI 20.79 kg/(m^2). GENERAL: pleasant, female in no apparent distress HEENT: Normocephalic and atraumatic NECK: Supple and full range of motion DERMATOLOGY: Normal, without lesions, and non-icteric BREAST: soft, non-tender, symmetric, no dominant mass, normal nipple-areolar complex, no lymphadenopathy, and no nipple discharge CHEST: Normal inspiratory effort ABDOMEN: soft, non-tender, and no masses PELVIC: external genitalia normal, normal Bartholin's glands, urethra, [place]'s glands, no vulvar lesions, no cervical lesions, good vaginal support, physiologic discharge present, normal appearing perineal body and perianal region BIMANUAL: uterus normal size, shape and consistency, no adnexal masses, non-tender, and no cervical motion tenderness RECTOVAGINAL: deferred. NEURO: alert and oriented x3,exam grossly non-focal EXTREMITIES: normal ASSESSMENT/PLAN: 1) Health maintenance: Pap done with reflex HPV. HPV vaccine: completed series 2) Contraception: combined hormonal contraceptives. Contraceptive options reviewed and information provided. 3) STD screening: Declined STD check. 4) Follow up one year or sooner as needed Lu Camacho APRN.CNM documented in this encounter [facility] 05-21-2023 Miscellaneous Notes Last office visit 05/02/22. Akvo message sent instructing to schedule. Requested Prescriptions Pending Prescriptions Disp Refills Levonorgestrel-Ethinyl Estrad (AVIANE) 0.1mg - 20mcg per tablet 112 tablet 0 Sig: Take 1 tablet by mouth once daily. Take active pill continuously x 3 mo (discard placebo pill) JENA GOMES RN documented in this encounter [facility] 05-02-2022 History of Presen t illness Narrative Hull Inspector offered: Patient declines. Ruthann is a 26 year old who presents for an annual gynecologic exam with questions about her OCPs. She reports migraines during the 3rd week of each month after starting new pill. States migraine will last 2-3 days and reports they have been occurring for 4-5 months. Denies any hx of migraines. Takes Tylenol for migraine with minimal relief. Menses: no menses - continuous OCPs. Contraception: combined hormonal contraceptives HPV vaccine: No Last Pap: 05/02/2021 normal HPV: 04/07/2019 negative History of abnormal pap: Yes Last mammogram: never Sexually active: Yes History of STDS: None Patient concerns for STD exposure: No. Pain with intercourse: No Postcoital bleeding: No Exercise: walks and rides bikes with kids Diet: balanced OB History T3 L3 SAB0 IAB0 Ectopic0 Multiple0 Live Births3 [employer] Combination History LMP: 06/14/2020, Unknown Age at Menarche: Age at First : Age at Menopause: [employer] Combination History Comments: Sexual Activity: Yes; Male Contraception: No contraception data on record PAST MEDICAL HISTORY Diagnosis Date Anemia Anxiety Depression fracture age 11 right arm fracture ulna and radius Hypertension POTS Papanicolaou smear of cervix with low grade squamous intraepithelial lesion (LGSIL) 07/15/2018 PAST SURGICAL HISTORY Procedure Laterality Date ANESTH, SECTION DELIVERY ONLY 05/11/15, 02/13/2019, 03/10/21 , low transverse TONSILLECTOMY HX 2010 FAMILY HISTORY Problem Relation Age of Onset Thyroid Mother No Known Problems Father ADD/ADHD Sister Asthma Brother No Known Problems Brother Diabetes Maternal Grandmother No Known Problems Maternal Grandfather Diabetes Paternal Grandmother Diabetes Paternal Grandfather No Known Problems Daughter SOCIAL HISTORY Social History Tobacco Use Smoking status: Former Years: 2.00 Types: Cigarettes Smokeless tobacco: Never Tobacco comments: 2 a day Vaping Use Vaping Use: Never used Substance Use Topics Alcohol use: No Drug use: No Comment: quit weed 1 year ago REVIEW OF SYSTEMS Abdomen: No abdominal pain, nausea, vomiting, diarrhea, or constipation. No bloating, early satiety, indigestion, or increased flatulence. Bladder: No dysuria, gross hematuria, urinary frequency, urinary urgency, or incontinence. Breast: No breast lumps, nipple d/c, overlying skin changes, redness or skin retraction. Allergies and current medication updated:Yes EXAM: BP 102/64 Ht 5' 2 (1.58m) Wt 108 lb (49.0kg) LMP 06/14/2020 BMI 19.75 kg/(m^2). GENERAL: pleasant, female in no apparent distress HEENT: Normocephalic, atraumatic, mucus membranes moist, and no lesions NECK: Supple, full range of motion, no adenopathy, and thyroid normal DERMATOLOGY: Normal, without lesions, non-icteric, and non-hirsute BREAST: soft, non-tender, symmetric, no dominant mass, normal nipple-areolar complex, no lymphadenopathy, and no nipple discharge ABDOMEN: soft, non-tender, and no masses PELVIC: external genitalia normal, normal Bartholin's glands, urethra, [place]'s glands, no vulvar lesions, no cervical lesions, good vaginal support, physiologic discharge present, normal appearing perineal body and perianal region BIMANUAL: uterus normal size, shape and consistency, no adnexal masses, and non-tender RECTOVAGINAL: deferred. NEURO: alert and oriented x3,exam grossly non-focal EXTREMITIES: normal ASSESSMENT/PLAN: 1) Health maintenance: Pap/HPV up to date. Mammogram starting age 40. Nutrition, exercise and routine health maintenance exams reviewed. HPV vaccine: will get dose #2 today 2) Contraception: combined hormonal contraceptives. Contraceptive options reviewed and information provided. 3) STD screening: Declined STD check. 4) Follow up one year or sooner as needed 5) vision exam reviewed 6) causes of FAIRCHILD reviewed Grace Enrique MD documented in this encounter [facility] 04-11-2022 Miscellaneous Notes The following approved medication requests have been transmitted electronically. Requested Prescriptions Pending Prescriptions Disp Refills midodrine (PROAMITINE) 5 mg tablet [Pharmacy Med Name: Midodrine HCl 5 MG Oral Tablet] 180 tablet 0 Sig: TAKE 2 TABLETS BY MOUTH THREE TIMES DAILY Steven Martins Jr, MD ALIZA:02-10-21 Last refill:02-10-21 Follow up:NA Forwarded to Dr. Martins for review. Diana Smallwood RN, BSN documented in this encounter [facility] 02-23-2022 History of Presen t illness Narrative Appt cancelled. Patient did not need seen. documented in this encounter [facility] 02-23-2022 Instructions Marilee Hdez Ma - 02/23/2022 11:32 AM EDT Gardasil Gardasil is a vaccine to protect against Human Papillomavirus (HPV) types 6, 11, 16, 18, 31,33,45, 52, 58. These viruses cause cancer and precancerous lesions on the cervix (opening between vagina and uterus), in the vagina and on the vulva (skin around the outside of the vagina) as well as genital warts. The vaccine cannot cause these diseases and cannot treat them if already present. Gardasil works best if given before contact with HPV. Most people are exposed to HPV soon after starting sexual activity. The vaccine is recommended between the ages of 9 and 45. Gardasil does not protect against all strains of HPV. Women who receive the vaccine still need to have regular pelvic exams and cervical cancer screening with the pap smear. You should ask your doctor if Gardasil is right for you if you have a weakened immune system, a bleeding disorder, plan to become soon or have a current illness causing fever. Gardasil is not recommended for women. You should be sure your doctor is aware of any allergies you have and all medications and herbal supplements you take. Gardasil is given to those ages 9-14 in 2 doses at 0 and 8 months. In ages 15-45, three injections are given at 0,2,6 months. Common side effects include pain, redness, itching and swelling at the injection site, nausea, fever, dizziness and fainting. Rare but potentially serious reactions have been reported. These include allergic reaction, swollen glands, joint and muscle pain, weakness and Guillain-[place] syndrome. documented in this encounter [facility] 07-04-2018 History of Past i llness Narrative Problem Noted Date Resolved Date with uncertain dates 07/04/2018 0 11/22/2018 Overview: 07/04/2018Patient unsure of dates. Believes LMP was in March. States she has known she has been for 4-6 weeks. Had verified at [facility] in [place]. Ultrasound ordered by Dr Carter for uncertain dates. TKRN Tobacco use during 07/04/201804/2019 Overview: 09/27/18-Smoking 1-2 CPD, trying to quit. Elisha Jones APRN.EMILYM 07/04/2018Pt smokes 3-5 cigarettes a day, down from 1ppd. Discussed risks of smoking during . Advised pt to quit.TKRN IUGR (intrauterine growth re striction) affecting care of mother 05/07/2015 10/19/2017 Overview: See ultrasound report. Plan to deliver via primary section on 05/17/15- Aurora Tucker, IUGR (intrauterine growth restriction) 5 10/19/2017 Overview: 4%ile deliver at 38-39 weeks twice weekly testing Anemia in 04/29/2015 10/19/2017 Overview: 04/29/15 - starting iron & folic acid - [facility] Rubella non-immune status, antepartum 04/29/2015 10/19/2017 Breech presentation with problem 04/2910/19/2017 Overview: Failed version plan primary cs with JV Supervision of high risk in third trim tamela 04/29/2015 10/19/2017 Overview: 04/29/15 - records reviewed from - [facility] Chow 01/11/2014 11/22/2018 Awareness alteration, transient 08/20/2013 02/19/2019 documented as of this encounter (statuses as of 02/24/2022) [facility] History of Past illness Narrative* Problem Noted Date Resolved Date with uncertain dates 07/04/2018 0 11/22/2018 Overview: 07/04/2018Patient unsure of dates. Believes LMP was in March. States she has known she has been for 4-6 weeks. Had verified at [facility] in [place]. Ultrasound ordered by Dr Carter for uncertain dates. TKRN Tobacco use during 07/04/201804/2019 Overview: 09/27/18-Smoking 1-2 CPD, trying to quit. Elisha Jones APRN.BOBBI 07/04/2018Pt smokes 3-5 cigarettes a day, down from 1ppd. Discussed risks of smoking during . Advised pt to quit.TKRN IUGR (intrauterine growth re striction) affecting care of mother 05/07/2015 10/19/2017 Overview: See ultrasound report. Plan to deliver via primary section on 05/17/15- Aurora Tucker, IUGR (intrauterine growth restriction) 5 10/19/2017 Overview: 4%ile deliver at 38-39 weeks twice weekly testing Anemia in 04/29/2015 10/19/2017 Overview: 04/29/15 - starting iron & folic acid - [facility] Rubella non-immune status, antepartum 04/29/2015 10/19/2017 Breech presentation with problem 04/2910/19/2017 Overview: Failed version plan primary cs with JV Supervision of high risk in third [facility] tamela 04/29/2015 10/19/2017 Overview: 04/29/15 - records reviewed from - [facility] Nausea 01/11/2014 11/22/2018 Awareness alteration, transient 08/20/2013 02/19/2019 documented as of this encounter (statuses as of 04/11/2022) [facility] History of Past illness Narrative* Problem Noted Date Resolved Date with uncertain dates 07/04/2018 0 11/22/2018 Overview: 07/04/2018Patient unsure of dates. Believes LMP was in March. States she has known she has been for 4-6 weeks. Had verified at [facility] in [place]. Ultrasound ordered by Dr Carter for uncertain dates. TKRN Tobacco use during 07/04/201804/2019 Overview: 09/27/18-Smoking 1-2 CPD, trying to quit. Elisha Jones APRN.CNM 07/04/2018Pt smokes 3-5 cigarettes a day, down from 1ppd. Discussed risks of smoking during . Advised pt to quit.TKRN IUGR (intrauterine growth re striction) affecting care of mother 05/07/2015 10/19/2017 Overview: See ultrasound report. Plan to deliver via primary section on 05/17/15- Aurora Tucker DO IUGR (intrauterine growth restriction) 5 10/19/2017 Overview: 4%ile deliver at 38-39 weeks twice weekly testing Anemia in 04/29/2015 10/19/2017 Overview: 04/29/15 - starting iron & folic acid - [facility]IO Rubella non-immune status, antepartum 04/29/2015 10/19/2017 Breech presentation with problem 04/2910/19/2017 Overview: Failed version plan primary cs with JV Supervision of high risk in third [facility] tamela 04/29/2015 10/19/2017 Overview: 04/29/15 - records reviewed from - [facility] Nausea 01/11/2014 11/22/2018 Awareness alteration, transient 08/20/2013 02/19/2019 documented as of this encounter (statuses as of 05/02/2022) [facility] History of Past illness Narrative* Problem Noted Date Diagnosed Date Resolved Date with uncertain dates 07/04/2018 11/22/2018 Overview: 07/04/2018Patient unsure of dates. Believes LMP was in March. States she has known she has been for 4-6 weeks. Had verified at [facility] in [place]. Ultrasound ordered by Dr Carter for uncertain dates. TKRN Tobacco use during 07/04/2018 02/19/2019 Overview: 09/27/18-Smoking 1-2 CPD, trying to quit. Elisha Jones APRN.CNM 07/04/2018Pt smokes 3-5 cigarettes a day, down from 1ppd. Discussed risks of smoking during . Advised pt to quit.TKRN IUGR (intrauterine growth re striction) affecting care of mother 05/07/2015 10/19/2017 Overview: See ultrasound report. Plan to deliver via primary section on 05/17/15- Aurora Tucker DO IUGR (intrauterine growth restriction) 05/05/2015 10/19/2017 Overview: 4%ile deliver at 38-39 weeks twice weekly testing Anemia in 04/29/2015 10/20/19 18 Overview: 04/29/15 - starting iron & folic acid - ROMARIO Rubella non-immune status, antepartum 04/29/2015 10/19/2017 Breech presentation with problem 04/29/2015 10/19/2017 Overview: Failed version plan primary cs with JV Supervision of high risk pre gnancy in third trimester 04/29/2015 10/19/2017 Overview: 04/29/15 - records reviewed from - [facility] Nausea 01/11/2014 11/22/2018 Awareness alteration, transient 08/20/2013 02/19/2019 documented as of this encounter (statuses as of 05/22/2023) [facility] History of Past illness Narrative* Problem Noted Date Diagnosed Date Resolved Date with uncertain dates 07/04/2018 11/22/2018 Overview: 07/04/2018Patient unsure of dates. Believes LMP was in March. States she has known she has been for 4-6 weeks. Had verified at [facility] in [place]. Ultrasound ordered by Dr Carter for uncertain dates. TKRN Tobacco use during 07/04/2018 02/19/2019 Overview: 09/27/18-Smoking 1-2 CPD, trying to quit. Elisha Jones APRN.CNM 07/04/2018Pt smokes 3-5 cigarettes a day, down from 1ppd. Discussed risks of smoking during . Advised pt to quit.TKRN IUGR (intrauterine growth re striction) affecting care of mother 05/07/2015 10/19/2017 Overview: See ultrasound report. Plan to deliver via primary section on 05/17/15- Aurora Tucker DO IUGR (intrauterine growth restriction) 05/05/2015 10/19/2017 Overview: 4%ile deliver at 38-39 weeks twice weekly testing Anemia in 04/29/2015 10/20/19 18 Overview: 04/29/15 - starting iron & folic acid - [facility] Rubella non-immune status, antepartum 04/29/2015 10/19/2017 Breech presentation with problem 04/29/2015 10/19/2017 Overview: Failed version plan primary cs with JV Supervision of high risk pre gnancy in third trimester 04/29/2015 10/19/2017 Overview: 04/29/15 - records reviewed from - ROMARIO Chow 01/11/2014 11/22/2018 Awareness alteration, transient 08/20/2013 02/19/2019 documented as of this encounter (statuses as of 08/16/2023) [facility] Diagnosis OPENED IN ERROR- Primary To allow closing an encounter opened in error (used in SmartSet) [facility] Diagnosis Encounter for gynecological examination (general) (routine) without abnormal findings- Primary Encounter for routine eye and vision examination Need for HPV vaccine Need for prophylactic vaccination and inoculation against other viral diseases [facility] Diagnosis Encounter for gynecological examination (general) (routine) without abnormal findings- Primary Screening for cervical cancer Screening for malignant neoplasm of the cervix Encounter for screening for human papillomavirus (HPV) Special screening examination for human papillomavirus (HPV) [facility] Diagnosis Procedure, test, or exam not indicated- Primary Procedure not carried out for other reasons [facility] Diagnosis Encounter for gynecological examination (general) (routine) without abnormal findings- Primary Screening for cervical cancer Screening for malignant neoplasm of the cervix Screen for STD (sexually transmitted disease) Screening examination for venereal disease Surveillance for control, oral contraceptives Surveillance of previously prescribed contraceptive pill documented in this encounter [facility] Summary Purpose Family History No Family History Records FoundNo Family History Records FoundNo Family History Records FoundNo Family History Records Found Advance Directives No Advanced Directives Records FoundNo Advanced Directives Records FoundNo Advanced Directives Records FoundNo Advanced Directives Records Found Reason for Referral Specialty Diagnoses / Procedures Referred By Contjose antonio tariq Referred To Contact Ophthalmology Diagnoses Encounter for routine eye and vision examination Procedures CONSULT TO OPHTHALMOLOGY OFFICE/OUTPATIENT [facility] 60-74 MINUTES Grace Mckeon MD [address] [place] [address] Referral ID Status Reason Start Date Expiration Date Visits Requested Visits Authorized [id number] Authorized PCP Requested Referral 2 05/02/2023 1 1 Additional Source Comments INFORMATION SOURCE (unrecogn ized section and content) DATE CREATED AUTHOR 07/14/2018 [facility] DATE CREATED AUTHOR AUTHOR'S ORGANIZ ATION 03/29/2025 [facility] DATE CREATED AUTHOR AUTHOR'S ORGANIZ ATION 03/29/2025 [facility] DATE CREATED AUTHOR AUTHOR'S ORGANIZ ATION 04/01/2025 [facility] Source Comments (unrecognize d section and content) In the event this informatio n is protected by the Federal Confidentiality of Alcohol and Drug Abuse Patient Records regulations: The Federal rules restrict any use of the information to criminally investigate or prosecute any alcohol or drug abuse patient.[facility] the event this information is protected by the Federal Confidentiality of Alcohol and Drug Abuse Patient Records regulations: The Federal rules restrict any use of the information to criminally investigate or prosecute any alcohol or drug abuse patient.[facility] the event this information is protected by the Federal Confidentiality of Alcohol and Drug Abuse Patient Records regulations: The Federal rules restrict any use of the information to criminally investigate or prosecute any alcohol or drug abuse patient.[facility] the event this information is protected by the Federal Confidentiality of Alcohol and Drug Abuse Patient Records regulations: The Federal rules restrict any use of the information to criminally investigate or prosecute any alcohol or drug abuse patient.[facility] the event this information is protected by the Federal Confidentiality of Alcohol and Drug Abuse Patient Records regulations: The Federal rules restrict any use of the information to criminally investigate or prosecute any alcohol or drug abuse patient.[facility] the event this information is protected by the Federal Confidentiality of Alcohol and Drug Abuse Patient Records regulations: The Federal rules restrict any use of the information to criminally investigate or prosecute any alcohol or drug abuse patient.[facility] the event this information is protected by the Federal Confidentiality of Alcohol and Drug Abuse Patient Records regulations: The Federal rules restrict any use of the information to criminally investigate or prosecute any alcohol or drug abuse patient.[facility] the event this information is protected by the Federal Confidentiality of Alcohol and Drug Abuse Patient Records regulations: The Federal rules restrict any use of the information to criminally investigate or prosecute any alcohol or drug abuse patient.[facility] Reason for Visit (unrecogniz ed section and content) Reason Onset Date Comments Gardasil Injection 02/23/2022 Reason Comments Refill Request Reason Comments Yearly Exam Reason Onset Date Comments Refill Request 05/18/2023 Reason Comments Yearly Exam Specialty Diagnoses / Procedures Referred By Contac t 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 Diagnoses Zoloft & control refills Annual exam Procedures [facility] ANNUAL Self Lu Camacho APRN.[address] [place] [address] Referral ID Status Reason Start Date Expiration Date Visits Requested Visits Authorized [id number] Authorized Patient Cleared - Qualified 100% FAS 08/16/2023 11/14/2023 99 99 Reason Comments Appointment Cancelled Reason Comments [facility] Care Teams (unrecognized sec tion and content) [employer] [employer] Relationship Specialty Start Date End Date Elias Noriega [address] [place] [address] PCP - General Pediatrics 04/22/15 [employer] [employer] Relationship Specialty Start Date End Date Elias Noriega [address] [place] [id number] PCP - General Pediatrics 04/22/15 [employer] [employer] Relationship Specialty Start Date End Date Elias Noriega [address] [place] [id number] PCP - General Pediatrics 04/22/15 [employer] [employer] Relationship Specialty Start Date End Date Elias Noriega MD [address] [place], [place] [id number] PCP - General Pediatrics 04/22/15 [employer] [employer] Relationship Specialty Start Date End Date Elias Noriega MD [address] [place], [place] [id number] PCP - General Pediatrics 04/22/15 [employer] [employer] Relationship Specialty Start Date End Date Elias Noriega MD [address] [place], [place] [id number] PCP - General Pediatrics 04/22/15 [employer] [employer] Relationship Specialty Start Date End Date Elias Noriega MD [address] [place], [place] [id number] PCP - General Pediatrics 04/22/15 [employer] [employer] Relationship Specialty Start Date End Date Elias Noriega MD [address] [place], [place] [phone] PCP - General Pediatrics 04/22/15 FOR RECORDS PERTAINING TO PATIENTS WHO ARE OR HAVE BEEN ENROLLED IN A CHEMICAL DEPENDENCY/SUBSTANCEABUSE PROGRAM, SOME INFORMATION MAY BE OMITTED. This clinical summary was aggregated from multiple sources. Caution should be exercised in using it in the provision of clinical care. This summary normalizes information from multiple sources, and as a consequence, information in this document may materially change the coding, format and clinical context of patient data. In addition, data may be omitted in some cases. CLINICAL DECISIONS SHOULD BE BASED ON THE PRIMARY CLINICAL RECORDS. [employer] [facility]. provides no warranty or guarantee of the accuracy or completeness of information in this document.
[2025-04-02 08:04] LABS: Hematocrit 29.3 % (37-47); Hemoglobin 9.3 g/dL (12.0-15.0); Mean Corp Hgb Conc 31.7 g/dL (32-36); Mean Corpuscular Volume 86.9 fL (81-99); Mean Platelet Vol. 11.0 fl (6.2-12.0); Platelet Count 213 K/mm3 (150-450); RBC Distribution Width CV 13.9 % (11.6-14.6); RBC Distribution Width SD 44.0 fl (35.1-43.9); Red Blood Count 3.37 M/mm3 (4.2-5.4); White Blood Count 6.6 K/mm3 (4.4-11.0)
[2025-04-02] MEDS: Lactated Ringers 1,000 ML 15 ML IV (08:11)
--- NOTE | 2025-04-02 08:30 | POC_PTH ---
PATIENT: RUTHANN MOSLEY LOC: [facility] [place] U#:[id number] AGE/SX: 29/F ROOM: RE04/02/[address]: Dr. Zabrina Carter, : 1995 BED: DIS: 04/02/2025 SPEC #: [id number] RECD: 04/02/25 09:58 STATUS: CHRISTINA DELMY #: [id number] BTAOOL: 04/02/25 08:[address]: Zabrina Carter DEPT: SURGICAL PATHOLOGY RECD BY: Tunde Hernandez ENTERED: 04/02/25 11:06 SP TYPE: PROD CONC OTHR DR: No Primary Care Phys Tissues: A - Product of conception, NOS Procedures: Surgery Specimen Level IV HEADER OPERATION: Dilation and curettage, suction PRE-OP DIAGNOSIS: Incomplete miscarriage TISSUE SUBMITTED: A- Products of conception MICROSCOPIC DIAGNOSIS A. Uterine cavity, products of conception, suction curettage: * Immature chorionic villi with abundant necrotic decidua, consistent with products of conception. MICROSCOPIC DESCRIPTION Slides are reviewed. GROSS DESCRIPTION A. Received in formalin labeled with the patient's name and date of . Designated as products of conception is a 6.0 x 4.8 x 1.3 cm aggregate of wilson-pink to red, focally arce, rubbery tissue fragments and clotted blood. No parts are grossly identified. Lodging Facilities Attendant sections are submitted 5 cassettes. SD 04/02/2025 CPT:98167
--- NOTE | 2025-04-02 08:42 | PCM.PRE.AN2 ---
ASA Classification* ASA Classification ASA Classification: 2 Assessment & Plan Anesthesia* Anesthesia Assessment Anesthesia Assessment: Discussed sedation and/or anesthesia options, risks, benefits, and alternatives with patient/parents/legal guardian/POA. Questions invited. The patient/parents/legal guardian/POA seems to understand and agrees to proceed with anesthesia plan. Reviewed the physical assessment, medical history, allergy history and patient home medications list prior to surgery/procedure/anesthetic and documented any changes. Performed airway and anesthesia risk assessments. Anesthesia Type Anesthesia Type: General and MAC History Source History Obtained from:: Patient, Chart and Significant Other ( in the room) Anesthesia Focused Assessment* Temperature: 98.8 F Pulse Rate: 62 Blood Pressure: 103/64 Respiratory Rate: 18 Pulse Ox: 100 Oxygen Delivery Method: Room Air Airway Assessment Mouth opens: >3 cm Mallampati Score: II Teeth Condition: Chipped/Broken (Dental caries. Front upper teeth bad condition and chipped.) Neck Range of motion (ROM): Full ROM Labs Anesthesia Preop lab: CBC WBC, (4.4-11.0) 6.6 K/mm3 Today, 07:58 RBC, (4.2-5.4) 3.37 M/mm3 L Today, 07:58 Hgb, (12.0-15.0) 9.3 g/dL L Today, 07:58 Hct, (37-47) 29.3 % L Today, 07:58 Plt Count, (150-450) 213 K/mm3 Today, 07:58 CHEMISTRY Potassium, (3.5-5.1) 3.1 mmol/L L 12/25/15, 19:13 Sodium, (136-145) 143 mmol/L 12/25/15, 19:13 Magnesium, (1.8-2.4) 1.6 mg/dL L 12/25/15, 20:48 BUN, (7-18) 8 mg/dL 12/25/15, 19:13 Creatinine, (0.55-1.20) 0.80 mg/dL 12/25/15, 19:13 Glucose, (70-110) 81 mg/dL 12/25/15, 19:13 COAG Urine Test Negative Negative 12/25/15, 19:20 Pre-Assessment Diagnosis/Proposed Procedure Planned Operative Procedure(s): suction, d&c Anesthesia History Anesthesia History - quality control assistant: Anesthesia History - quality control assistant Hx Hospitalization No 03/31/25 10:50 Any Problems With Anesthesia No 03/31/25 10:50 Cholinesterase deficiency No 03/31/25 10:50 You/Your Family Experience No 03/31/25 10:50 fever (hyperthermia) with Relationship Recent Exposure to Contagious No 04/02/25 08:07 Disease Does patient have nerve No 03/31/25 10:50 stimulator Patient instructed to have device shut off --Does patient have Pacemaker No 04/02/25 08:07 or ICD? When Was Last Pacemaker Check QUESTION #4 FULL TEXT: You/Your Family Experience fever (hyperthermia) with Anesthesia Last Oral Intake Last Oral intake: Last Oral Intake NPO since 11:30 04/02/25 08:07 Meds taken in AM with sips of water? Meds patient instructed to take am of surgery PONV PONV - quality control assistant: PONV - quality control assistant Female Yes 03/31/25 10:50 HX of Motion Sickness No 03/31/25 10:50 HX of N/V After Surgery No 03/31/25 10:50 Non-Smoker No 03/31/25 10:50 Duration of Surgery greater No 03/31/25 10:50 than 60 minutes Number of Risk Factors 1 03/31/25 10:50 PONV Score Low Risk 03/31/25 10:50 Height & Weight Height & Weight: Anesthesia: Height & Weight Height 5 ft 1 in 04/02/25 08:07 Weight: 46.4 kg 04/02/25 08:07 Body Mass Index (BMI) 19.3 04/02/25 08:07 Respiratory Assessment Respiratory Assessment - quality control assistant: Respiratory Tract Infection Hx - quality control assistant Hx Respiratory Tract Infection No 03/31/25 10:50 STOP Sleep Apnea STOP Sleep Apnea - quality control assistant: STOP Sleep Apnea - quality control assistant Hx Hypertension No 03/31/25 10:50 Hx Sleep Apnea No 03/31/25 10:50 CPAP BIPAP Do you snore loudly (louder No 03/31/25 10:50 than talking or can be heard Do you often feel tired/ No 03/31/25 10:50 fatigued/ sleepy during daytime? Has anyone observed you stop No 03/31/25 10:50 breathing during sleep? STOP Results Negative 03/31/25 10:50 QUESTION #5 FULL TEXT : Do you snore loudly (louder than talking or can be heard through closed doors)? Tobacco Use History Tobacco Use History - quality control assistant: Tobacco Use History - quality control assistant Tobacco Use Smoking Status Current every day smoker 03/31/25 10:50 Hx Tobacco Use Yes 03/31/25 10:50 Years Smoking Packs Smoked per Day Smoking Cessation Date was within the last 15 years Hx Smoking Cessation Date Hx Smoking Cessation Counseling Hematologic Medial History Hematologic Hx - quality control assistant: Hematologic Medical Hx - supervisor locomotive Hx of Blood Transfusion No 03/31/25 10:50 Hx of Transfusion in last 3 No 03/31/25 10:50 Months Date of Last Transfusion (if within last 3 months) Ever experience any problems No 03/31/25 10:50 with transfusion(s)? Specify any problems Hx of Preganancy in last 3 N/A 03/31/25 10:50 Months Nurse Filling Out Transfusion NBUCHER 03/31/25 10:50 & Questions: Date: 03/31/25 03/31/25 10:50 Time: 10:52 03/31/25 10:50 Patient unable to answer at this time (ie. confused, unrespo /Reproduction History /Reproductive History - quality control assistant: /Reproductive Hx- quality control assistant Hx Now No 03/31/25 10:50 Gestational Age (in weeks): EDC: Hx Hx Para Hx Section SAB No 03/31/25 10:50 Active Medications Active Medications: Current Medications Generic Name Dose Route Start Last Admin Trade Name Freq PRN Reason Stop Dose Admin Lactated Ringer's 1,000 mls @ 15 mls/hr 04/02/25 07:30 04/02/25 08:11 IV 15 mls/hr .Q48H MORIS Administration PFSH Medical History Anemia Smoker Cardiology follow-up encounter POTS (postural orthostatic tachycardia syndrome) History of prior with IUGR depression Depression Home Medications ?Medication ?Instructions ?Recorded ?Last Taken ?Type ferrous sulfate 325 mg (65 mg 325 mg PO DAILY anemia 02/13/19 04/01/25 History iron) tablet oxycodone-acetaminophen 5 mg-325 1 tab PO Q6H PRN pain 04/02/25 04/01/25 History mg tablet Allergy/AdvReac Type Severity Reaction Status Date / Time codeine Allergy Abd Verified 04/02/25 08:03 cramps/diarrhea hydrocodone bitartrate (From Allergy Chest Verified 04/02/25 08:03 Vicodin) tightness tramadol HCl (From Ultram) Allergy Other Verified 04/02/25 08:03 Surgical History History of tonsillectomy Delivery by section Social History Smoking Status: Current every day smoker tobacco type: cigarettes Review of Systems (Anesthesia) ROS Narrative System reviewed and no additional complaints, except as documented.
--- NOTE | 2025-04-02 08:44 | HP.PCM.OB_ITS ---
HPI - General General Date of Admission: 04/02/25 Date of Service: 04/02/25 Chief Complaint: incomplete miscarriage HPI Narrative RUTHANN MOSLEY, is a 29 F who presents for her scheduled suction D&C for incomplete miscarriage. Having cramping and pain. [facility] Medical History Anemia Smoker Cardiology follow-up encounter POTS (postural orthostatic tachycardia syndrome) History of prior with IUGR depression Depression Home Medications ?Medication ?Instructions ?Recorded ?Last Taken ?Type ferrous sulfate 325 mg (65 mg 325 mg PO DAILY anemia 0 02/13/19 04/01/25 History iron) tablet oxycodone-acetaminophen 5 mg-325 1 tab PO Q6H PRN pain 04/02/25 04/01/25 History mg tablet Allergy/AdvReac Type Severity Reaction Status Date / Time codeine Allergy Abd Verified 04/02/25 08:03 cramps/diarrhea hydrocodone bitartrate (From Allergy Chest Verified 04/02/25 08:03 Vicodin) tightness tramadol HCl (From Ultram) Allergy Other Verified 04/02/25 08:03 Surgical History History of tonsillectomy Delivery by section Social History Smoking Status: Current every day smoker tobacco type: cigarettes History Elective abortions Hx Para 2 Spontaneous abortions Hx # Term Pregnancies Ectopic pregnancies Hx # Pregnancies Multiple births # of living children Vital Signs Vital Signs Vital Signs: 04/02/25 08:07 04/02/25 08:07 Temperature 98.8 F Temperature Source Temporal Pulse Rate 62 Respiratory Rate 18 Respiratory Pattern Normal Blood Pressure 103/64 Blood Pressure Mean 77 Blood Pressure Source Monitor Blood Pressure Position Semi-Fowlers Blood Pressure Location Left Arm Pulse Ox 100 Oxygen Delivery Method Room Air Weight Weight: 102 lb 4.712 oz Body Mass Index (BMI) 19.3 Labs Labs Labs: Blood Type A POSITIVE Antibody Screen NEGATIVE Hct, (37-47) 29.3 % L Hgb, (12.0-15.0) 9.3 g/dL L Rhogam given: No Assessment & Plan (1) Incomplete miscarriage: PLAN: Discussed r/b/a suction D&C for incomplete miscarriage. Failed 2 rounds of Cytotec. Patient desire to proceed with surgical management. [facility] answered.
[2025-04-02] MEDS: Midazolam 2 MG/2 ML Syringe IV (08:59)
[2025-04-02] MEDS: fentaNYL 100 MCG/2 ML Ampul IV (09:06)
[2025-04-02] MEDS: Lidocaine 1% /Epi 1:100 (20ml) 20 ML Vial (09:21)
[2025-04-02] MEDS: Ketorolac 30 MG/ML Syringe IV (09:29)
--- NOTE | 2025-04-02 09:31 | DCINST_ITS ---
Discharge Instructions DC O2, CPAP, BIPAP needs Home O2 Discharge instructions: No Dressing / Incision Discharge Activity: May Drive (once you are more than 24 hours out from surgery) and May Shower (once you are more than 24 hours out from surgery) May resume sexual activity in: 1 week (nothing in the vagina and no soaking in water for 1 week/while you are having the bleeding) Weight Bearing Status: Weight bearing as tolerated Dressing / Incision Call your doctor if you observe: Fever of 101 or Higher, Inability to urinate, Inability to have a bowel movement, Using more than 1 pad per hour, Shortness of breath, Dizziness, Chest pain, Increased palpitations (irregular heartbeat), Calf discomfort and Uncontrolled pain Follow Up Care Please Follow Up With: Zabrina Carter DO When: 1 week post operative appointment Test Results: Test results from this visit will be discussed in further detail at your follow- up appointment, if applicable. Discharge Plan Admission Attending Provider: Zabrina Carter Primary Care Provider: Care Physician,Tomeka Primary Instructions Print Language: [place] Korean Discharge Orders/Prescriptions Prescriptions: Continued ferrous sulfate 325 MG tablet 325 mg PO DAILY oxycodone-acetaminophen 5-325 mg tablet 1 tab PO Q6H PRN (Reason: pain) Referrals / Follow Up: Care Physician,No Primary [Primary Care Provider, Medical] Disposition Disposition (needs filled in before D/C Order can be placed): Home, Self Care
--- NOTE | 2025-04-02 09:32 | OP.PCM_ITS ---
Operative Report (Standard) Operative Information Date of Procedure: 04/02/25 Pre-Operative Diagnosis: Incomplete miscarriage Post-Operative Diagnosis: As above Surgery/Procedure Performed: Suction D&C harvesting contractor: No Type of Anesthesia: MAC RN Documented Start/Stop Times: Operation Date: 04/02/25 08:30 Case Time Into Pre-Op 04/02/25 07:17 Anesthesia Start 04/02/25 08:57 Into Room 04/02/25 08:57 Procedure Start 04/02/25 09:14 Procedure End 04/02/25 09:25 Anesthesia End 04/02/25 09:32 Out of Room 04/02/25 09:32 Procedure Start Time: 09:14 Procedure Stop Time: 09:25 Select all DRAINS/GRAFTS/IMPLANTS that apply: None Estimated Blood Loss: 30 mL Fluids Replaced: See anesthesia record Specimen collected: Yes Description of specimen(s) removed: Products of conception Description of surgery: The patient was taken to the operating room where MAC anesthesia was induced and found to be adequate. She was prepped and draped in the dorsal lithotomy position using yellowfin stirrups. A weighted speculum was placed in the vagina to expose the cervix. The anterior lip of the cervix was grasped with a single- tooth tenaculum. The cervix was serially dilated to accommodate a size 8 suction curettage. Under ultrasound guidance the suction curettage was then advanced into the uterus for several passes to remove the retained products of conception. An ultrasound was performed at the end of the case noting no retained products in the uterus noted, and a thin endometrial stripe. Bleeding was scant. All instruments were removed from the vagina and a vaginal sweep was performed. Instrument and sponge counts were correct. The patient was taken to the recovery in stable condition. Surgical Findings: Retained POC's noted at the start of the case with an intrauterine GS, yolk sac, and 7 week sized non viable pole Complications Complications: No Admit VTE Documentation VTE Present on Admission: No VTE Mechan Device Prophylaxis: SCD's
--- NOTE | 2025-04-02 09:45 | PCM.POST.ANE ---
Anesthesia: Postop Eval I Current Vital Signs Temperature: 97.9 F Pulse Rate: 76 Blood Pressure: 107/62 Respiratory Rate: 16 Pulse Ox: 100 Oxygen Delivery Method: Room Air Assessment Airway patent: Yes Spontaneous unlabored respirations: Yes Mental status: Awake and Calm nausea: No Vomiting: No Anesthesia Complication: No Fluid Hydration Crystalloid volume administer (ml): 800 Total IV fluid infused: 800 Progress Note Anesthesia document: Postop Eval 1 completed: Yes
--- NOTE | 2025-04-02 10:50 | SUR.PHASEII ---
up to bathroom to void urinated and had some bleeding and clots passed into toilet. new pad given
--- NOTE | 2025-04-02 14:31 | POSTOPAN2_ITS ---
Anesthesia Postop Eval I Sum Postop Eval Completion status Anesthesia document: Postop Eval 1 completed: Yes Anesthesia Postop Eval I Summary Anesthesia Postop Eval I Summary: Anesthesia Postop Eval I: Assessment Summary Airway patent Yes 04/02/25 10:09 BENEFITS [email or web address] Spontaneous unlabored Yes 04/02/25 10:09 BENEFITS [email or web address].[email or web address] respirations Mental status Awake,Calm 04/02/25 10:09 BENEFITS [email or web address] nausea No 04/02/25 10:09 BENEFITS CLERK.GDOTT Vomiting No 04/02/25 10:09 BENEFITS CLERK.GDOTT Anesthesia Postop Eval I: Fluid Summary Crystalloid volume administer 800 04/02/25 10:09 BENEFITS CLERK.GDOTT (ml) Colloids volume administered ( ml) Blood Product volume administered (ml) Total IV fluid infused 800 04/02/25 10:09 BENEFITS CLERK.GDOTT Anesthesia Postop Eval I: Summary Notes Anesthesia Complication No 04/02/25 10:09 BENEFITS CLERK.GDOTT Anesthesia Complication Comment: Post-operative progress note Anesthesia: Postop Eval II Evaluation Mental status: Awake and Calm Pain Level: 1 nausea: No Vomiting: No Complications Anesthesia Complication: No
--- NOTE | 2025-04-02 14:31 | PCM.POSTANE2 ---
Anesthesia Postop Eval I Sum Postop Eval Completion status Anesthesia document: Postop Eval 1 completed: Yes Anesthesia Postop Eval I Summary Anesthesia Postop Eval I Summary: Anesthesia Postop Eval I: Assessment Summary Airway patent Yes 04/02/25 10:09 SOLUTION [email or web address] Spontaneous unlabored Yes 04/02/25 10:09 SOLUTION [email or web address] respirations Mental status Awake,Calm 04/02/25 10:09 SOLUTION [email or web address] nausea No 04/02/25 10:09 SOLUTION [email or web address] Vomiting No 04/02/25 10:09 SOLUTION [email or web address] Anesthesia Postop Eval I: Fluid Summary Crystalloid volume administer 800 04/02/25 10:09 SOLUTION [email or web address] (ml) Colloids volume administered ( ml) Blood Product volume administered (ml) Total IV fluid infused 800 04/02/25 10:09 SOLUTION [email or web address] Anesthesia Postop Eval I: Summary Notes Anesthesia Complication No 04/02/25 10:09 SOLUTION [email or web address] Anesthesia Complication Comment: Post-operative progress note Anesthesia: Postop Eval II Evaluation Mental status: Awake and Calm Pain Level: 1 nausea: No Vomiting: No Complications Anesthesia Complication: No
== END 2025-04-02 11:28 | disposition home or self-care (01) ==
LOC: SDC 07:11 → AC 07:13
PROVIDERS: Referring Provider Obstetrics & Gynecology; Visit Provider Obstetrics & Gynecology
PROC: (CPT 59812; principal; 2025-04-02 08:15)
DX: O03.4 Incomplete spontaneous abortion without complication (principal); F17.210 Nicotine dependence, cigarettes, uncomplicated
CPT/HCPCS: 59812; 85027; 86850; 86900; 86901; 88305; J2405